=== PATIENT | female | born 1950 | race Caucasian/White ===

== ENCOUNTER → 2022-08-06 12:42 | Outpatient (CLI) | payer MEDICARE, SELFPAY ==
--- NOTE | 2022-08-06 | DI.RAD.S_ITS ---
PROCEDURE: FL JOINT INJECTION LARGE LT INDICATIONS: Bilateral primary osteoarthritis of hip.... COMPARISON: None. TECHNIQUE: The indications, alternatives, benefits, risks, and complications of the procedure were explained to the patient. Written informed consent was obtained and placed in the chart. The patient was placed in an appropriate position on the fluoroscopy table, and a site was chosen for percutaneous access under fluoroscopic guidance. The site was prepped and draped in a sterile fashion. Local anesthetic was administered using a 1% lidocaine solution. A hypodermic or spinal needle was then used to access the symptomatic joint. Intra-articular location of the needle tip was confirmed by injecting a small amount of contrast, followed by steroid administration. The needle was then withdrawn, and a bandage applied to the puncture site. FINDINGS: Joint injected: Left hip Medications injected: 4 mL of 40 mg/mL Kenalog and 0.5% Ropivacaine mixture. Patient's pain before injection: 5-6 out of 10. Patient's pain after injection: 1-2 out of 10. Complications: None. IMPRESSION: Successful fluoroscopically guided administration of steroid and anaesthetic solution into the left hip joint. Dictated by: Jay Harper M.D. on 08/06/2022 at 16:43 Approved by: Jay Harper M.D. on 08/06/2022 at 16:44
== END ==
PROVIDERS: PCP Physician Assistant Medical; Referring Provider Physician Assistant Surgical; Visit Provider Physician Assistant Surgical
DX: M16.0 Bilateral primary osteoarthritis of hip (principal)
CPT/HCPCS: 20610; 77002

== ENCOUNTER → 2023-05-09 13:09 | Outpatient (CLI) | payer MEDICARE, SELFPAY ==
[2023-05-09 14:04] LABS: Add Manual Diff / Slide Review NO; Basophils Absolute Auto 100 /uL (0-100); Basophils Percent Auto 1.2 % (0-2); Eosinophils Absolute Auto 200 /uL (0-450); Eosinophils Percent Auto 3.6 % (2-4); Hematocrit 39.5 % (36-46); Hemoglobin 13.4 g/dL (12.0-16.0); Lymphocytes Absolute Auto 1500 /uL (1100-4500); Lymphocytes Percent Auto 28.7 % (25-40); Mean Corpuscular HGB Conc 33.9 % (30-36); Mean Corpuscular Hemoglobin 32.2 PG (26-34); Mean Corpuscular Volume 94.9 fL (80-100); Monocytes Absolute Auto 600 /uL (0-900); Monocytes Percent Auto 10.9 % (3-14); Neutrophils Absolute Auto 2900 /uL (1500-7000); Neutrophils Percent Auto 55.6 % (50-75); Platelet Count 299 X10^3/uL (150-400); Red Blood Cell Count 4.16 X10^6/uL (4.0-5.2); Red Cell Distribution Width 13.5 % (11.6-14.8); White Blood Cell Count 5.3 X10^3/uL (4.5-11.0)
[2023-05-09 14:06] LABS: Appearance Urine UA CLEAR; Bilirubin Urine UA NEGATIVE (NEGATIVE); Color Urine UA YELLOW; Glucose Urine UA NEGATIVE (Negative); Ketones Urine UA NEGATIVE (NEGATIVE); Leukocyte Esterase Urine UA NEGATIVE (NEGATIVE); Nitrite Urine UA POSITIVE (Negative); Occult Blood Urine UA NEGATIVE (Negative); Protein Urine UA NEGATIVE (Negative); Specific Gravity Urine UA <=1.005 (1.000-1.035); Urobilinogen Urine UA 0.2 E.U./dL (0.2)
[2023-05-09 14:08] LABS: Urine Volume 10mL (spun)
[2023-05-09 14:10] LABS: Bacteria Urine Moderate (10-30); Culture Indicated Urine Specimen Cultured; RBC Urine None Seen (0-5/HPF); Squamous Epithelial Cell Urine None Seen (0-5/HPF); WBC Urine None Seen (0-5/HPF)
[2023-05-09 14:22] LABS: BUN Creatinine Ratio 27.7 (6-22); Blood Urea Nitrogen 18 mg/dL (7-17); Calcium 9.8 mg/dL (8.4-10.2); Carbon Dioxide 30 mmol/L (22-32); Chloride 100 mmol/L (98-107); Estimated Glomerular Filt Rate > 60 mL/min (>60); Glucose 109 mg/dL (80-110); HEMOLYSIS < 15 (0-50); Potassium 3.9 mmol/L (3.4-5.1); Sodium 138 mmol/L (137-145)
[2023-05-11 05:36] LABS: x Labcorp Estim. Avg Glu (eAG) 120 mg/dL (.); x Labcorp Hemoglobin A1c 5.8 % (4.8-5.6)
== END ==
PROVIDERS: PCP Physician Assistant Medical; Referring Provider Orthopaedic Surgery; Visit Provider Orthopaedic Surgery
DX: Z01.818 Encounter for other preprocedural examination (principal); R73.9 Hyperglycemia, unspecified; N39.0 Urinary tract infection, site not specified
CPT/HCPCS: 36415; 80048; 81001; 83036; 85025; 87077; 87086; 87186; 93005; 93010

== ENCOUNTER 2023-06-24 11:32 | Day surgery (SDC) | payer MEDICARE, SELFPAY ==
[2023-06-16 09:49] VITALS: BMI 38.2
[2023-06-24] VITALS (11 sets, daily range): BP systolic 124–157; BP diastolic 59–87; PULSE 61–86; RESP 10–18; TEMP 35.8–36.5; O2SAT 96–99; BMI 38.2
--- NOTE | 2023-06-24 06:00 | DI.RAD.S_ITS ---
PROCEDURE: XR PELVIS 1-2V INDICATIONS: INNER OP HIP TECHNIQUE: Intra-operative view of the pelvis and hip acquired. COMPARISON: [facility], CR, XR HIP W PEL IF DONE LT 2V, 06/24/2023, 17:46. [facility], CR, XR PELVIS WITH LATERAL HIP LEFT, 04/30/2023, 8:58. FINDINGS: Bones: Intraoperative devices prior to placement of arthroplasty prostheses are in expected positions. No fractures or suspicious bony lesions. Soft tissues: Overlying surgical retractors are present, along with other intraoperative changes. IMPRESSION: Intraoperative left hip arthroplasty. Dictated by: Chiara Norris M.D. on 06/25/2023 at 12:09 Approved by: Chiara Norris M.D. on 06/25/2023 at 12:09
[2023-06-24] MEDS: VANCOMYCIN 1,000 MG/200 ML PIGGYBACK 200 MG IV (14:02)
[2023-06-24] MEDS: MELOXICAM 7.5 MG TABLET 15 MG PO (14:03)
[2023-06-24] MEDS: ACETAMINOPHEN 325 MG TABLET 975 MG PO (14:03)
--- NOTE | 2023-06-24 14:59 | P.OP_ITS ---
Operative Date/Time/Diagnoses Date of procedure: 06/24/23 Time of procedure: 15:00 Pre-op diagnosis: Left hip OA Post-op diagnosis: same Procedure & Clinicians Procedure: Left total hip arthroplasty posterior approach Same procedure as scheduled: Yes Indications: The patient has had progressively worsening left hip pain with radiographic nilson nges consistent with arthritis. Non-operative management has failed and the patient has requested total hip replacement. The risks, benefits and alternatives to surgery were discussed with the patient prior to proceeding. Risks discussed included, but were not limited to, failure to relieve pain, leg length discrepancy, dislocation, stiffness, infection, nerve damage, deep venous thrombosis, pulmonary embolism, stroke, coma, heart attack, permanent paralysis and , as well as the potential need for eventual revision of the prosthetic. Surgeon: [employer] Librarian: Pawel Newton Anesthesia Type: General and Spinal Operative Notes Findings: Severe left hip OA, adequate stability, adequate bone Closure Type: primary Specimen(s): none sent Prosthetic devices, grafts, tissues, transplants, or devices: [employer] R3 50, neutral poly liner,one 6.5 mm screw, polar stem size 2 with collar, 32 +0 femoral head Estimated Blood Loss (mL): 250 Blood products transfused: none Procedure in detail: The patient was seen in the pre-operative area, where the patient identified the left hip as the operative site and this was marked with my initials. The patient received pre-operative antibiotics and was taken to the operating room and placed on the operative table in the right lateral decubitus position after satisfactory anesthesia. A bpm analyst out was performed. The left leg was prepared from the ankle to the iliac crest with ChloroPrep in the usual fashion and draped through sterile drapes. A PA was used during the procedure and was essential for intraoperative retraction and safe implantation of the components. The hip was approached through an approximately 20 cm incision centered over the greater trochanter and curving gently posteriorly as it went proximally. This was carried sharply to the fascia anderson, which was divided and retracted with a self retaining retractor. The trochanteric bursa was excised with care being taken to avoid the sciatic nerve, which was identified and protected throughout the case. The short external rotators were incised and the capsulomuscular flap was raised and tagged for later repair. The hip was dislocated, and a femoral neck osteotomy performed approximately 15 mm above the lesser trochanter. Retractors were placed around the femur. The canal was opened with a box cutting osteotome, followed by a T handled reamer and a lateralizing reamer. The chili pepper broach was then used, followed by sequential broaching until there was good stability of the broach in the femur. Retractors were placed to expose the acetabulum. The labrum and central soft tissues were removed. Reaming was performed initially going up in 2 mm increments, then 1 mm increments until good bite was obtained with an odd sized reamer. The cup 1 mm larger than the last reamer was then inserted using the a ppropriate anteversion guides. It was further stabilized with a single screw. A trial neutral liner was placed. The broach was placed in the canal. A trial head and neck were then placed and the hip relocated and checked for leg length and stability. An intraoperative film confirmed the component position and no evidence of fracture. The patient was stable in the position of sleep, of squatting, and could be put through a range of motion with 45 degrees internal rotation without dislocation. At 90 degrees flexion, internal rotation to 70? was possible before dislocation. This was felt to be satisfactory and the appropriate components were opened, and the trials were removed. The acetabular liner was impacted into position. The final stem was then impacted into the prepared femoral canal. A brief Betadine soak was performed while trialing with head options. The hip was meticulously irrigated with normal saline. Finally the femoral head was impacted onto the stem. The acetabulum was cleared of all material and the hip relocated one final time. The capsulomuscular flap was then repaired to the greater trochanter though an awl hole using the tag sutures. The short external rotators were repaired with a nonabsorbable suture. A deep drain was placed and brought out anteriorly. The fascia anderson was closed with Vicryl. The subcutaneous layer was closed with barbed sutures and skin brisa. A [place] Dressing was applied and the patient was taken to recovery having tolerated the procedure well. Complications: none Post-operative Condition: stable Disposition: Acute Care Plan for aftercare: The patient will be maintained on a standard total hip replacement protocol with weight bearing as tolerated and posterior hip precautions. The patient will receive Aspirin and sequential compression devices for DVT prophylaxis. The patient has a history of a single superficial phlebitis episode but has not had recurrent venous thrombus events. The patient will be discharged home when safe for the home environment.
--- NOTE | 2023-06-24 14:59 | PM.PREOP ---
Pre-operative Note Interval Note History & Physical reviewed/Exam performed by Physician: Yes Changes to H&P: No
[2023-06-24] MEDS: CEFAZOLIN 2 GM/100 ML PREMIX 100 ML IV ×2 (15:12→23:30)
[2023-06-24] MEDS: TRANEXAMIC ACID 1,000 MG VIAL 1000 MG INJ ×2 (15:39→17:03)
[2023-06-24] MEDS: LACTATED RINGERS 1,000 ML 42 ML IV ×2 (15:50→17:58)
--- NOTE | 2023-06-24 16:01 | SUR.OPER ---
Lateral on padded OR bed. Gel axillary roll. Arms secured on padded armboard with pillow supporting top arm. Padded hip positioner braces x4 - anterior and posterior chest and pelvis. Additional gel pad used anterior pelvis. Gel pad under bottom leg from knee to foot and secured with tape over sheet.
[2023-06-24] MEDS: BUPIVACAINE LIPOSOME 266 MG/20 ML VIAL INJ (16:11)
[2023-06-24] MEDS: BUPIVACAINE 0.5% (PF) 30 ML, EPINEPHrine 0.15 MG INJ (16:13)
--- NOTE | 2023-06-24 18:00 | DI.RAD.S_ITS ---
PROCEDURE: XR HIP W PEL IF DONE LT 2V INDICATIONS: POST OP LEFT HIP TECHNIQUE: AP pelvis and lateral view of the hip acquired. COMPARISON: None. FINDINGS: Bones: Patient is status post left hip arthroplasty, with hardware components in expected positions. The hip joint appears congruent. The visualized bony structures appear intact. Soft tissues: Overlying postoperative changes are noted. No suspicious soft tissue densities. IMPRESSION: Expected post-operative appearance of a hip arthroplasty. Approved by: Jocelin Smart M.D.,Ph.D. on 06/24/2023 at 19:05
[2023-06-24] MEDS: ACETAMINOPHEN 325 MG TABLET 650 MG PO (19:59)
[2023-06-24] MEDS: OXYCODONE IR 5 MG TABLET PO (20:01)
[2023-06-24] MEDS: METOPROLOL ER 25 MG TABLET PO (20:30)
[2023-06-24] MEDS: LACTATED RINGERS 1,000 ML 100 ML IV (20:36)
[2023-06-24] MEDS: ASPIRIN EC 81 MG TABLET PO (20:39)
[2023-06-24] MEDS: ATORVASTATIN 20 MG TABLET 40 MG PO (20:39)
[2023-06-24] MEDS: IBUPROFEN 600 MG TABLET PO (20:40)
[2023-06-24] MEDS: DOCUSATE 100 MG CAPSULE PO (20:40)
[2023-06-24] MEDS: HYDROMORPHONE 0.5 MG INJ IV (21:44)
[2023-06-25] VITALS (11 sets, daily range): BP systolic 68–139; BP diastolic 38–69; PULSE 53–87; RESP 16; TEMP 36.1–36.6; O2SAT 94–99
[2023-06-25] MEDS: ACETAMINOPHEN 325 MG TABLET 650 MG PO ×3 (01:16→13:35)
[2023-06-25] MEDS: IBUPROFEN 600 MG TABLET PO (01:17)
--- NOTE | 2023-06-25 01:27 | PC.NURSE ---
Addendum entered by Lias Weaver R.N. 06/25/23 02:46: Pt unable to void. Bladder scan performed with result of 500-600cc. Straight cath results 700cc. Original Note: Patient orthostatic when getting up to bedside commode. Patient reported dizziness and weakness while sitting. BP sitting was 70/38, HR 38. Lying BP 119/76, HR 73.
[2023-06-25] MEDS: LACTATED RINGERS 1,000 ML 100 ML IV (01:44)
[2023-06-25] MEDS: OXYCODONE IR 5 MG TABLET PO ×4 (02:22→13:35)
[2023-06-25] MEDS: CEFAZOLIN 2 GM/100 ML PREMIX 100 ML IV (06:07)
[2023-06-25 06:15] LABS: Hematocrit 35.7 % (36-46); Hemoglobin 11.9 g/dL (12.0-16.0)
[2023-06-25] MEDS: LEVOTHYROXINE 137 MCG TABLET PO (06:28)
--- NOTE | 2023-06-25 09:20 | PT.IIE ---
Current Diagnoses Unilateral primary osteoarthritis, left hip (06/24/23) Pain in left hip (06/24/23) Surgery Performed Operation Date: 06/24/23 13:45 Actual Procedures p Total Hip Arthroplasty(Left) - Heide Douglas MD Surgical History (Last Updated 06/16/23 @ 10:20 by Joanne Mina, RN) Hx of bilateral cataract extraction Hx of cholecystectomy (2011) Hx of heart artery stent (2017) Hx of hernia repair Hx of tubal ligation (~1972) Hx of vein stripping (~1983) Medical History (Last Updated 06/16/23 @ 10:20 by Joanne Mina RN) Anxiety Depression DVT (deep venous thrombosis) Easy bruisability Fibromyalgia HLD (hyperlipidemia) HTN (hypertension) Hypothyroidism NSTEMI (non-ST elevated myocardial infarction) (2017) DWIGHT on CPAP Osteoarthritis Physical Therapy Inpatient Evaluation/Re-Eval M1 PT/OT-IP Prior Functional Status Start: 06/25/23 12:50 Freq: NEEDED Status: Active Protocol: Document 06/25/23 09:20 AB (Rec: 06/25/23 13:15 AB [id number]) Medical Review Prior Functional Status Medical History Reviewed Yes Communication agreeable to do PT Mobility and Gait pt stated that she was modified independent with all mobilities and ambulation without AD indoors but uses a hurrycane for outdoor mobility Social History Household Members family,friend(s) Living Arrangements House Number of Floors (Floors) Two Floors Number of Stairs To Enter/Railing? pt stays on main level of the house has 2 steps without rails but has R sided post to enter the house Home Environment Standard Height Toilet,Walk in Shower,Built-In Shower Seat Home Equipment Front Wheel Walker,Raised Toilet Seat Without Armrests, Grab Bars Near Toilet Additional Social History Comment pt will have her son and girlfriend Barbara to assist her at home pt has a hurrycane M2 PT-IP Current Condition Start: 06/25/23 12:50 Freq: NEEDED Status: Active Protocol: Document 06/25/23 09:20 AB (Rec: 06/25/23 13:15 AB [id number]) Physical Therapy Current Condition Current Condition Evaluation Date 06/25/23 Treatment Diagnosis s/p L ESTEFANY posterior; difficulty in walking Onset Date 03/26/24 M3 PT-IP Subjective Start: 06/25/23 12:50 Freq: NEEDED Status: Active Protocol: Document 06/25/23 09:20 AB (Rec: 06/25/23 13:15 AB [id number]) Subjective Physical Therapy Visit Type Type Initial Evaluation Visit Start Time 09:20 Visit Stop Time 11:25 Notes pt seen for split visits: 920 am to 1005 and 1100 am to 1125 Number of DIRECTOR OF FINANCIAL REPORTING Visits 0 Physical Therapy Visit Comments Patient Comments pt is agreeable to do PT Therapy Pain Assessment Pain When Pain Assessed At Rest Pain Present Pain Present Pain Reported Location Left Hip Intensity 5 Scale Used Numeric (0 - 10) Pain Management Techniques Apply Cold,Distraction, Modification of Treatment,Re- positioning,Timing of Activity with Medications M4 PT-IP Mobility and Gait Start: 06/25/23 12:50 Freq: NEEDED Status: Active Protocol: Document 06/25/23 09:20 AB (Rec: 06/25/23 13:15 AB [id number]) PT-Bed Mobility Assessment Supine to Sit Supine to Sit Minimal Assistance PT-Transfer Assessment Sit to and From Stand Sit to and from Stand Minimal Assistance,Maximum Assistance,1 Person Assistance ,2 Person Assistance,Use of Upper Extremities Equipment Transfer Assistive Device Gait Belt,Front Wheeled Walker Orthotic/Prosthetic Devices or Brace: No Transfers Transfer Destination Bedside Commode Transfer Technique Stand Step Pivot Transfer Ability Level of Assist Minimal Assistance,Moderate Assistance,1 Person Assistance ,Use of Upper Extremities Comments Mobility Comments pt supine in bed and agreeable to do PT. obtained PLOF and home set up from pt. BP: 104/ 59. post-op folder provided and reviewed contents. educated pt regarding L hip posterior precautions. pt requiring cues to recall her precautions. pt completed supine to sit min A. able to sit on EOB CGA. pt with increase posterior trunk lean requiring cues to position. pt requested to use the toilet. completed sit to stand from EOB x 3 attempts requiring max A x 1-2 and max cues. presents with increase posterior trunk leaning during pushing and pt sliding forward on EOB instead of pushing down to stand. pt completed step transfer to bedside commode min to mod A and cues using FWW. call light placed next to pt and instructed to ask for assistance once ready. informed nurse. checked back on pt again and pt sitting on the chair. completed sit to stand min A and max cues. pt with heavy UE use to push up from chair. instructed pt to sit back down. educated pt on sit to stand techniques. pt completed sit<>stand x 4 reps min A and max cues. pt ambulated in room using FWW ~ 25 ft min A and cues. pt sat back on chair. completed sit to stand again x2 and continues to require min A and max cues. pt step transfer to EOB min A using FWW. completed sit to stand from EOB requiring max A and max cues. pt tends to push trunk backwards and pt stated that she is afraid to lean forward. educated pt regarding techniques for sit to stand again and leaning forward for sit to stand will be go against her hip precautions as long as LLE is in a straight forward position prior to getting up. pt transferred back to chair min A using FWW. positioned pt on the chair. call light and table placed within reach. caregiver training set up for 2pm this afternoon. Gait Assessment Gait Gait Assistance Required: Minimum Assistance,1 Person Assist Distance (Feet) 25 Able to Maintain Weight Bearing Status Yes During Gait Assistive Devices Assistive Device Gait Belt,Front Wheeled Walker Orthotic/Prosthetic Devices or Brace: No Gait Deviations General Gait Pattern Antalgic,Decreased Stride Length,Decreased Feet Clearance Factors Limiting Gait Function Factors Limiting Gait Function Decreased Activity Tolerance, Decreased Strength,Difficulty Following Directions,Limited Range of Motion,Pain,Poor Balance,Poor Safety Awareness PT-Balance Assessment Sitting Balance and Reactions Static Sitting Balance Ability Good Dynamic Sitting Balance Ability Fair Standing Balance and Reactions Static Standing Balance Ability Fair Dynamic Standing Balance Ability Poor Device Used FWW M5 PT-IP Objective Assessments Start: 06/25/23 12:50 Freq: NEEDED Status: Active Protocol: Document 06/25/23 09:20 AB (Rec: 06/25/23 13:15 [id number]) Orientation Orientation/Cognition Level of Alertness Alert Orientation Name,Place,Situation Language Function Ability No Deficits Noted Safety Awareness Decreased Safety Awareness Memory Description Short Term Impaired Gross Range of Motion Lower Extremity ROM Assessment Within Functional Limits Strength Lower Extremity Strength Assessment Left Impaired Hip 3+/5 Knee 3+/5 Muscle Tone Muscle Tone WNL Yes M6 PT-IP Treatment Start: 06/25/23 12:50 Freq: NEEDED Status: Active Protocol: Document 06/25/23 09:20 AB (Rec: 06/25/23 13:15 [id number]) Physical Therapy Treatment Education Education Provided Precautions,Weight Bearing Status,Post-Op Packet,Safety M7 PT-IP Assessment and Plan Start: 06/25/23 12:50 Freq: NEEDED Status: Active Protocol: Document 06/25/23 09:20 (Rec: 06/25/23 13:15 [id number]) PT Summary Assessment and Plan Potential Rehabilitation Potential Fair Status of Condition at Evaluation Evolving Summary Impairments Pain,ROM,Strength,Balance, Coordination,Sensation,Tone, Cognition,Bed Mobility, Transfers,Gait,Activity Tolerance Assessment Summary pt is a 72 y/o F s/p L ESTEFANY posterior approach POD 1. pt requiring max cue with all tasks for hip precautions and safety. pt with difficulty with sit to stand requiring max A x 1-2 for getting up from EOB and min A from chair. pt requiring min A for ambulation using fWW. caregiver training set up this afternoon at 2 pm. will continue to assess progress. pt also has to complete stair climbing training as pt has 2 steps without rails to enter the house. Goals Bed Mobility Goal Independent Transfer Goal Independent,Front Wheeled Walker Gait Goal Independent,Front Wheel Walker Gait Distance 150 Other Goals up/down 2 steps using hurrycane/SAFEMAKER min A Days to Meet Goals 5 Frequency of Treatment Frequency Of Treatment Twice a Day Treatment Plan Physical Therapy Treatment Plan Bed Mobility Training,Transfer Training,Gait Training, Therapeutic Exercise,Balance Retraining,Post Op Education, Discharge Planning,Hot or Cold Pack,Neuromuscular Re-ed, Coordination Retraining,Manual Therapy Precautions Posterior Hip Precautions No Hip Flexion > 90 degrees,No Hip Internal Rotation,No Hip Adduction Weight Bearing Status Weight Bearing Status Weight Bear as Tolerated Allowed Weight Bearing Amount (enter % LLE WBAT or #) (%) Recommendations To Nursing Amount of Assist Needed 2 Person Assist Discharge Recommendations PT Discharge Recommendations Home with 21/10 Assist Available,Outpatient PT Transportation Needs at Discharge Private Vehicle
[2023-06-25] MEDS: MELOXICAM 7.5 MG TABLET 15 MG PO (09:21)
[2023-06-25] MEDS: TRIAMTERENE/HCTZ 37.5/25 CAPSULE 1 CAP PO (09:21)
[2023-06-25] MEDS: DULOXETINE 30 MG CAPSULE 60 MG PO (09:22)
[2023-06-25] MEDS: DOCUSATE 100 MG CAPSULE PO (09:23)
[2023-06-25] MEDS: ASPIRIN EC 81 MG TABLET PO (09:23)
--- NOTE | 2023-06-25 11:35 | PM.PNPO.1 ---
Subjective Subjective Date Patient Seen: 06/25/23 Time Patient Seen: 07:00 Interval history: Patient is found in her bed. she says she was lightheaded last night and early this morning. She was unable to void on her own. Last attempt was at 5:00 a.m. Pain is controlled with oral medications. Denies any weakness, numbness or tingling down her legs. Exam Vital Signs (past 8 hours): - 06/25/23 05:30 06/25/23 05:35 06/25/23 05:47 Temperature 97.9 F Pulse Rate 70 77 87 Respiratory Rate 16 Blood Pressure 137/68 119/66 129/56 L Pulse Oximetry 99 95 95 Oxygen Flow Rate 0 0 0 Oxygen Delivery Method Room Air Oxygen Flow Rate 0 Narrative Exam Narrative: Dressing appears to be well-maintained no drainage noted. Sensation grossly intact to the lower extremities bilaterally. Able to flex and extend knee, dorsisflex and plantar flex against resistance bilaterally. Able to flex and extend EHL against resistance. Const General: cooperative and comfortable Resp Effort & Inspection: normal respiratory effort and able to speak in complete sentences Objective Labs 06/25/23 05:58 Labs: Laboratory Results - last 24 hr 06/25/23 05:58 Hgb 11.9 L Hct 35.7 L PFSH Medical History (Updated 06/16/23 @ 10:20 by Joanne Mina RN) Depression Easy bruisability Osteoarthritis Hypothyroidism Anxiety DVT (deep venous thrombosis) Fibromyalgia DWIGHT on CPAP HLD (hyperlipidemia) HTN (hypertension) NSTEMI (non-ST elevated myocardial infarction) (2017) Surgical History (Updated 06/16/23 @ 10:20 by Joanne Mina RN) Hx of vein stripping (~1983) Hx of tubal ligation (~1972) Hx of cholecystectomy (2011) Hx of hernia repair Hx of bilateral cataract extraction Hx of heart artery stent (2017) Social History household members: family and friend(s) Smoking Status: Never smoker alcohol intake: current Assessment & Plan Post-op Postoperative Procedures: Procedures Operation Date: 06/24/23 13:45 Actual Procedure Side Surgeon p Total Hip Arthroplasty Left Heide Douglas MD Postoperative day: 1 Postoperative plan: routine post-op care Postoperative plan narrative: Patient has complaints of light headedness and difficultly voiding. We will continue to monitor patient's blood pressure and bladder scan. Multi-modal pain control Work with PT. Juarezte tomorrow to be discharged home. Time Spent With Patient Time with patient: less than 15 minutes Quality VTE Deep Vein Thrombosis/Pulmonary Embolism Present on Admission: No
--- NOTE | 2023-06-25 12:27 | PM.DS.1 ---
History of Present Illness History of Present Illness Date Patient Seen: 06/25/23 Time Patient Seen: 12:00 Chief complaint: Left ESTEFANY *OPB* 06/23 Narrative: Left total hip arthroplasty posterior approach Same procedure as scheduled: Yes Indications: The patient has had progressively worsening left hip pain with radiographic changes consistent with arthritis. Non-operative management has failed and the patient has requested total hip replacement. The risks, benefits and alternatives to surgery were discussed with the patient prior to proceeding. Risks discussed included, but were not limited to, failure to relieve pain, leg length discrepancy, dislocation, stiffness, infection, nerve damage, deep venous thrombosis, pulmonary embolism, stroke, coma, heart attack, permanent paralysis and , as well as the potential need for eventual revision of the prosthetic. Surgeon: Heide Douglas [employer] Supervisor: Pawel Newton Anesthesia Type: General and Spinal Operative Notes Findings: Severe left hip OA, adequate stability, adequate bone Closure Type: primary Specimen(s): none sent Prosthetic devices, grafts, tissues, transplants, or devices: Douglas [employer] Nephew R3 50, neutral poly liner,one 6.5 mm screw, polar stem size 2 with collar, 32 +0 femoral head Estimated Blood Loss (mL): 250 Discharge Providers Provider Date of admission: 06/25/2023 Discharge Date: 06/25/23 Primary care physician: Yanni Simental PA-C Consults: 06/24/23 06:00 Consult to Anesthesiology Routine Comment: Consulting Provider: Anesthesiologist Reason for consultation: Regional block for post operative pain control 06/24/23 18:15 Consult to Discharge Planning Routine Comment: Consult to Occupational Therapy Evaluate & Treat Comment: Physician Instructions: Evaluate and treat Consult to Physical Therapy Evaluate & Treat Comment: Physician Instructions: post op ESTEFANY protocol Discharge provider: Uriel Farley PA-C Summary Hospital Course Discharge Diagnosis: Status post left hip arthroplasty Hospital Course: Multi modal pain control and PT. Status at Discharge Cognitive/behavioral status at discharge: oriented Functional status at discharge: uses cane/walker Overall status at discharge: patient is back to baseline Time Spent with Patient Time spent: Less than 30 minutes Exam Vital Signs (past 8 hours): - 06/25/23 05:30 06/25/23 05:35 06/25/23 05:47 Temperature 97.9 F Pulse Rate 70 77 87 Respiratory Rate 16 Blood Pressure 137/68 119/66 129/56 L Pulse Oximetry 99 95 95 Oxygen Flow Rate 0 0 0 06/25/23 10:06 Temperature 96.9 F L Pulse Rate 55 L Respiratory Rate 16 Blood Pressure 96/52 L Pulse Oximetry 94 Oxygen Flow Rate 0 Oxygen Delivery Method Room Air Oxygen Flow Rate 0 Narrative Exam Narrative: Dressing appears to be well-maintained no drainage noted.? Sensation grossly intact to the lower extremities bilaterally. Able to flex and extend knee, dorsisflex and plantar flex against resistance bilaterally. Able to flex and extend EHL against resistance. Patient had some complaints during her evening in the morning postoperatively. The lightheadedness dissipated as the morning and afternoon went on. She also had difficulty voiding and required a straight cath previous night.. But once she was started to ambulate she was able to void on her own. Objective Labs 06/25/23 05:58 Labs: Laboratory Results - last 24 hr 06/25/23 05:58 Hgb 11.9 L Hct 35.7 L PFSH Medical History (Updated 06/16/23 @ 10:20 by Joanne Mina RN) Depression Easy bruisability Osteoarthritis Hypothyroidism Anxiety DVT (deep venous thrombosis) Fibromyalgia DWIGHT on CPAP HLD (hyperlipidemia) HTN (hypertension) NSTEMI (non-ST elevated myocardial infarction) (2018) Surgical History (Updated 06/16/23 @ 10:20 by Joanne Mina RN) Hx of vein stripping (~1983) Hx of tubal ligation (~1972) Hx of cholecystectomy (2011) Hx of hernia repair Hx of bilateral cataract extraction Hx of heart artery stent (2017) Social History household members: family and friend(s) Smoking Status: Never smoker alcohol intake: current Discharge Assessment & Plan Assessment and Plan Assessment: Status post left hip arthroplasty Plan of Treatment: Posterior hip precautions. Discharge home with family to start outpatient physical therapy in 5-7 days. Patient will take aspirin 81 mg twice a day for DVT prophylaxis. Patient has been prescribed postoperative medications and received them and instructed in their use. Patient will follow up in clinic in 2 weeks for wound check. Discharge Plan Discharge Plan Patient Disposition: Home Provider Discharge Comment: Pending PT approval Discharge orders & Medications Discharge Orders: Discharge (Order); Ordered 06/25/23 Ordered By: Uriel Farley Prescriptions: Continued atorvastatin 40 mg Tablet 40 mg PO BEDTIME levothyroxine 137 mcg Tablet 137 mcg PO DAILY meloxicam 15 mg Tablet 7.5 - 15 mg PO DAILY acetaminophen 500 mg Tablet 1,500 mg PO DAILY PRN (Reason: Pain) triamterene-hydrochlorothiazid 37.5-25 mg Tablet 1 tab PO DAILY metoprolol succinate 25 mg Tablet Extended Release 24 Hr 25 mg PO BEDTIME duloxetine 60 mg Capsule,Delayed Release(Dr/Ec) 60 mg PO DAILY Changed aspirin 81 mg Capsule 81 mg PO BID Qty: 90 0RF Follow up/Referrals: Yanni Simental PA-C [Primary Care Provider] - Diet/Activity/Treatments Diet: Diet as Tolerated Activity: Weight bearing as tolerated Cold/Heat Therapy: Apply ice for pain relief Skin/Wound/Dressing Care Report to your healthcare provider any signs of infection, such as:: chills, fever, night sweats, unusual drainage and unusual redness Dressing: Keep dressing clean and dry. Change if it becomes dirty or disrupted. Visit Report/Discharge Packet Instructions: DI for Hip Replacement Stand Alone Forms: Patient Portal/API Discharge Data Primary Care Provider: Yanni Simental Attending Provider: Heide Douglas
--- NOTE | 2023-06-25 14:00 | PT.IPTN ---
Current Diagnoses Unilateral primary osteoarthritis, left hip (06/24/23) Pain in left hip (06/24/23) Surgery Performed Operation Date: 06/24/23 13:45 Actual Procedures p Total Hip Arthroplasty(Left) - Heide Douglas MD Physical Therapy Treatment Note M2 PT-IP Current Condition Start: 06/25/23 12:50 Freq: NEEDED Status: Active Protocol: Document 06/25/23 09:20 AB (Rec: 06/25/23 13:15 AB [id number]) Physical Therapy Current Condition Current Condition Evaluation Date 06/25/23 Treatment Diagnosis s/p L ESTEFANY posterior; difficulty in walking Onset Date 06/24/23 M3 PT-IP Subjective Start: 06/25/23 12:50 Freq: NEEDED Status: Active Protocol: Document 06/25/23 14:51 TS (Rec: 06/25/23 15:07 TS [id number]) Subjective Physical Therapy Visit Type Type Treatment Note Visit Start Time 14:00 Visit Stop Time 14:40 Notes Son and friend present for caregiver training. Number of DONATIONS ATTENDANT Visits 1 Physical Therapy Visit Comments Patient Comments pt is agreeable to do PT. Therapy Pain Assessment Pain When Pain Assessed At Rest Pain Present Pain Present Pain Reported M4 PT-IP Mobility and Gait Start: 06/25/23 12:50 Freq: NEEDED Status: Active Protocol: Document 06/25/23 14:51 TS (Rec: 06/25/23 15:07 TS [id number]) PT-Transfer Assessment Sit to and From Stand Sit to and from Stand Minimal Assistance,1 Person Assistance Equipment Transfer Assistive Device Gait Belt,Front Wheeled Walker Orthotic/Prosthetic Devices or Brace: No Comments Mobility Comments Sitting in chair, BP 123/74. Pt recalled 2/3 hip precautions( STS from chair with friend Malinda with FWW, pt required cues for pushing from arms chair and hip less than 90D. She ambulated ~100'CGA/ SBA with FWW and slow step to gait, she denied any dizziness . She performed steps x1 with friend and SPC ModA with difficulty wbering on L side. Steps x2 with CD REACTOR OPERATOR HEAD and ModA, pt continues to have difficulty wbering on L side. Pt ambulated back to chair. Pt was left in chair, all needs met. Gait Assessment Gait Gait Assistance Required: Standby Assistance,Contact Guard Assist Distance (Feet) 100 Able to Maintain Weight Bearing Status Yes During Gait Assistive Devices Assistive Device Gait Belt,Front Wheeled Walker Orthotic/Prosthetic Devices or Brace: No Gait Deviations General Gait Pattern Antalgic,Decreased Stride Length,Decreased Feet Clearance Factors Limiting Gait Function Factors Limiting Gait Function Decreased Activity Tolerance, Decreased Strength,Difficulty Following Directions,Limited Range of Motion,Pain,Poor Balance,Poor Safety Awareness Comments Gait Comments See mobility comments Stair Climbing Assessment Evaluation Level of Assist On Stairs Moderate Assistance,2 Person Assistance Devices Stair Climbing Assistive Devices Left Railing,Right Railing Technique/Endurance Stair Climbing Direction Ascend and Descend Stair Climbing Technique Step to Step Number of Steps Climbed 3 PT-Balance Assessment Sitting Balance and Reactions Static Sitting Balance Ability Good Dynamic Sitting Balance Ability Good Standing Balance and Reactions Static Standing Balance Ability Good Dynamic Standing Balance Ability Fair Device Used FWW M5 PT-IP Objective Assessments Start: 06/25/23 12:50 Freq: NEEDED Status: Active Protocol: Document 06/25/23 09:20 AB (Rec: 06/25/23 13:15 AB [id number]) Orientation Orientation/Cognition Level of Alertness Alert Orientation Name,Place,Situation Language Function Ability No Deficits Noted Safety Awareness Decreased Safety Awareness Memory Description Short Term Impaired Gross Range of Motion Lower Extremity ROM Assessment Within Functional Limits Strength Lower Extremity Strength Assessment Left Impaired Hip 3+/5 Knee 3+/5 Muscle Tone Muscle Tone WNL Yes M6 PT-IP Treatment Start: 06/25/23 12:50 Freq: NEEDED Status: Active Protocol: Document 06/25/23 14:51 TS (Rec: 06/25/23 15:07 TS [id number]) Physical Therapy Treatment Education Education Provided Precautions,Weight Bearing Status,Post-Op Packet,Safety M7 PT-IP Assessment and Plan Start: 06/25/23 12:50 Freq: NEEDED Status: Active Protocol: Document 06/25/23 14:51 TS (Rec: 06/25/23 15:07 TS [id number]) PT Summary Assessment and Plan Potential Rehabilitation Potential Fair Summary Impairments Pain,ROM,Strength,Balance, Coordination,Sensation,Tone, Cognition,Bed Mobility, Transfers,Gait,Activity Tolerance Progress Towards Goals Progressing Toward Goals Assessment Summary Tatum is making good progress with her mobility. She is Malinda for STS with use of FWW. She progressed her gait to ~100' SBA/CGA with FWW. She performed steps x3 with ModA x2. She had some difficulty with increased wbering on surgical LE when performing steps. PT is recommending pt return home with 24/7 assist at this time. Goals Bed Mobility Goal Independent Transfer Goal Independent,Front Wheeled Walker Gait Goal Independent,Front Wheel Walker Gait Distance 150 Other Goals up/down 2 steps using hurrycane/CD REACTOR OPERATOR HEAD min A Days to Meet Goals 5 Frequency of Treatment Frequency Of Treatment Twice a Day Treatment Plan Physical Therapy Treatment Plan Bed Mobility Training,Transfer Training,Gait Training, Therapeutic Exercise,Balance Retraining,Post Op Education, Discharge Planning,Hot or Cold Pack,Neuromuscular Re-ed, Coordination Retraining,Manual Therapy Precautions Posterior Hip Precautions No Hip Flexion > 90 degrees,No Hip Internal Rotation,No Hip Adduction Weight Bearing Status Weight Bearing Status Weight Bear as Tolerated Allowed Weight Bearing Amount (enter % LLE WBAT or #) (%) Recommendations To Nursing Amount of Assist Needed 1 Person Assist Discharge Recommendations PT Discharge Recommendations Home with 24/7 Assist Available,Outpatient PT Transportation Needs at Discharge Private Vehicle
--- NOTE | 2023-06-25 14:46 | OT.IP.EVAL ---
Current Diagnoses Unilateral primary osteoarthritis, left hip (06/24/23) Pain in left hip (06/24/23) Surgery Performed Operation Date: 06/24/23 13:45 Actual Procedures p Total Hip Arthroplasty(Left) - Heide Douglas MD Past Medical History (Last Updated 06/16/23 @ 10:20 by Joanne Mina, RN) Anxiety Depression DVT (deep venous thrombosis) Easy bruisability Fibromyalgia HLD (hyperlipidemia) HTN (hypertension) Hypothyroidism NSTEMI (non-ST elevated myocardial infarction) (2018) DWIGHT on CPAP Osteoarthritis Surgical History (Last Updated 06/16/23 @ 10:20 by Joanne Mina RN) Hx of bilateral cataract extraction Hx of cholecystectomy (2011) Hx of heart artery stent (2017) Hx of hernia repair Hx of tubal ligation (~1972) Hx of vein stripping (~1983) Occupational Therapy Inpatient Evaluation/Re-Eval M1 PT/OT-IP Prior Functional Status Start: 06/25/23 12:20 Freq: NEEDED Status: Active Protocol: Document 06/25/23 09:20 AB (Rec: 06/25/23 13:15 AB [id number]) Medical Review Prior Functional Status Medical History Reviewed Yes Communication agreeable to do PT Mobility and Gait pt stated that she was modified independent with all mobilities and ambulation without AD indoors but uses a hurrycane for outdoor mobility Social History Household Members family,friend(s) Living Arrangements House Number of Floors (Floors) Two Floors Number of Stairs To Enter/Railing? pt stays on main level of the house has 2 steps without rails but has R sided post to enter the house Home Environment Standard Height Toilet,Walk in Shower,Built-In Shower Seat Home Equipment Front Wheel Walker,Raised Toilet Seat Without Armrests, Grab Bars Near Toilet Additional Social History Comment pt will have her son and girlfriend Barbara to assist her at home pt has a hurrycane M1 PT/OT-IP Prior Functional Status Start: 06/25/23 14:29 Freq: NEEDED Status: Active Protocol: Document 06/25/23 14:29 PK (Rec: 06/25/23 14:45 PK [id number]) Medical Review Prior Functional Status Medical History Reviewed Yes Communication agreeable to do PT Mobility and Gait pt stated that she was modified independent with all mobilities and ambulation without AD indoors but uses a hurrycane for outdoor mobility Activities of Daily Living and IADL's pt reports being I with all tasks except donning shoes prior to sx Prior Functional Level (Other details) pt mows her grass, works in her green house, and drives Social History Household Members family,friend(s) Living Arrangements House Number of Floors (Floors) Two Floors Number of Stairs To Enter/Railing? pt stays on main level of the house has 2 steps without rails but has R sided post to enter the house Home Environment Standard Height Toilet,Walk in Shower Home Equipment Front Wheel Walker,Raised Toilet Seat Without Armrests, Hand Held Shower,Long Handled Sponge,Long Handled Shoe Horn, Thermodynamic Physicist,Sock Aid,Grab Bars Near Toilet Additional Social History Comment pt will have her son and girlfriend Barbara to assist her at home pt has a hurrycane M2 OT-IP Current Condition Start: 06/25/23 14:29 Freq: Status: Active Protocol: Document 06/25/23 14:29 PK (Rec: 06/25/23 14:45 VANNAALZENAIDA [id number]) Occupational Therapy Current Condition Current Condition Evaluation Date 06/25/23 Treatment Diagnosis s/p L ESTEFANY posterior approach Diagnosis Onset Date 06/24/23 Post Operative Precautions Posterior Hip Precautions No Hip Flexion > 90 degrees,No Hip Internal Rotation,No Hip Adduction M3 OT- IP Subjective and Pain Start: 06/25/23 14:29 Freq: Status: Active Protocol: Document 06/25/23 14:29 PK (Rec: 06/25/23 14:45 VANNAALZENAIDA [id number]) OT- Subjective Occupational Therapy Visit Type Type Initial Evaluation Visit Start Time 11:45 Visit Stop Time 12:20 Notes Pt sitting up in chair on entrance of OT. Pt agreeable to participating in OT eval. Occupational Therapy Visit Comments Patient Comments do go home OT Pain Assessment Pain When Pain Assessed At Rest Pain Present Pain Present Pain Reported Location Left Hip Intensity 3 Description Aching,Dull M4 OT- IP ADL's Start: 06/25/23 14:29 Freq: Status: Active Protocol: Document 06/25/23 14:29 PK (Rec: 06/25/23 14:45 [facility] [id number]) OT NPL-[id number]-Oqfswoy General Evaluation Self-Feeding Ability Independent OT ADL-Grooming Comments OT Grooming Comments pt declined during eval. OT discussed modifications and safety when performing sink side ADLs in order to maintain hip precautions. Pt reports she usually bends at the waist and leans on sink while performing. OT educated pt that this breaks 90 hip precautions and demonstrated possible modifications. OT ADL-Oral Care Comments Oral Care Comments pt declined during eval. OT discussed modifications and safety when performing sink side ADLs in order to maintain hip precautions. Pt reports she usually bends at the waist and leans on sink while performing. OT educated pt that this breaks 90 hip precautions and demonstrated possible modifications. OT ADL-Dressing General Eval Upper Body Dressing Ability Independent Lower Body Dressing Ability Standby Assistance Areas Needing Assistance Retrieving/Set-up of Clothing Assistive Devices Dressing Assistive Devices Long Handled Shoe Horn,Thermodynamic Physicist ,Sock Aid Comments OT Dressing Comments Pt demonstrated dressing while sitting up in chair, donning underpants and socks. Pt was familiar with AE, reporting that she has been using them for years. Pt attempted to use sock aid in upside down position. OT re-educated pt on proper use and safety. OT ADL-Toileting Comments OT Toileting Comments pt denied needing to at this time. OT ADL-Bathing Comments OT Bathing Comments Pt declined bathing. Pt asked questions about showering and her dressing. OT told pt to avoid holding HHS over dressing, but that water running her body was allowed. OT recommended wrapping area for increased protection and dryness. M5 OT- IP IADL's Start: 06/25/23 14:29 Freq: Status: Active Protocol: Document 06/25/23 14:29 [facility] (Rec: 06/25/23 14:45 [facility] [id number]) OT-Instrumental Activities of Daily Living Home Safety Awareness Awareness of Need for Assistance at Home Good Awareness Ability to Problem Solve Emergency Able to Problem Solve Situations Medication Management Medication Management No Deficits Identified Money Management Money Management No Deficits Identified Meal Preparation Meal Preparation Caregiver Provides Supervision Customer Service Advisor Customer Service Advisor Caregiver Provides Assist Driving Driving Caregiver Provides Assist M6 OT- IP Functional Cognition Start: 06/25/23 14:29 Freq: Status: Active Protocol: Document 06/25/23 14:29 VANNAALZENAIDA (Rec: 06/25/23 14:45 [facility] [id number]) Cognitive Factors Limiting Selfcare Function Cognitive Ability Level of Alertness Alert Patient Orientation Name,Age,Birthday,Month,Date, Year,Day of Week,Place, Situation Attention Span Ability Capable of Focused Attention, Capable of Sustained Attention Ability to Follow Commands Able to Follow One Step Commands,Able to Follow Multi- Step Commands Memory Description No Deficits Noted Safety Awareness No Deficits Noted Problem Solving Ability No deficits Noted Executive Function Ability No Deficits Noted Abstract Thinking Ability No Deficits Noted OT- Vision and Hearing OT- Hearing Assessment OT- Hearing Assessment WFL OT- Vision Assessment Visual Acuity WFL,Glasses All The Time M7 OT- IP Mobility and Balance Start: 06/25/23 14:29 Freq: Status: Active Protocol: Document 06/25/23 14:29 VANNAALMORGANAILEEN (Rec: 06/25/23 14:45 [facility] [id number]) OT-Transfer Assessment Sit to and From Stand Sit to and from Stand Minimal Assistance,1 Person Assistance Transfers Transfer Ability Minimal Assistance,1 Person Assistance Technique Transfer Destination Chair Transfer Technique Forward/Backward Scoot Devices Transfer Assistive Devices Gait Belt,Front Wheeled Walker OT- Gait Assessment Comments Gait Ability Comments pt declined as her lunch had arrived. OT- Balance Assessment Sitting Balance and Reactions Static Sitting Balance Ability Normal Dynamic Sitting Balance Ability Good Standing Balance and Reactions Static Standing Balance Ability Good Dynamic Standing Balance Ability Fair M8 OT- IP Objective Assessments Start: 06/25/23 14:29 Freq: Status: Active Protocol: Document 06/25/23 14:29 VANNAFATIMAHMORGANAILEEN (Rec: 06/25/23 14:45 [facility] [id number]) OT Gross Range of Motion Upper Extremity Range of Motion Assessment Within Functional Limits OT Strength Upper Extremity Strength Assessment Within Functional Limits Hand Truck Guard Strength Hand Dominance Right OT- Coordination Assessment Upper Extremity Finger to Nose Test Within Functional Limits Finger Tapping Test Within Functional Limits M9 OT- IP Assessment and Plan Start: 06/25/23 14:29 Freq: Status: Active Protocol: Document 06/25/23 14:29 VANNAALMORGANAILEEN (Rec: 06/25/23 14:45 [facility] [id number]) OT Summary Assessment and Plan Potential Rehabilitation Potential Excellent Analytic Complexity at Evaluation Low Summary OT Impairments Pain,Balance,Functional Mobility,Grooming,Dressing, Toileting,Bathing,Toilet Transfers,Shower Transfers, Activity Tolerance Progress Towards Goals Progressing Toward Goals Assessment Summary Pt is 72 yo F s/p L ESTEFANY posterior approach. Pt was unable to state her hip precautions. Pt was familiar with AE, but required minor corrections for correct use. Pt demonstrates decreased BADLs, functional t/fs, and activity tolerance. Pt is appropriate for skilled OT services to address these deficits for 1-2 visits until d/c. Pt was left up in chair with all needs met and in reach. Goals Grooming Goal Independent Dressing Goal Independent,Long Handled Shoe Horn,Thermodynamic Physicist,Sock Aid Toileting Goal Independent Bathing Goal Independent,Grab Bars,Hand Held Shower Sprayer,Long Handled Sponge or Thayer Toilet Transfer Goal Independent,Raised Toilet Seat ,Grab Bars Shower Transfer Goal Independent,Shower Chair,Grab Bars Days to Meet Goals 2 Frequency of Treatment Frequency Of Treatment Once a Day Treatment Plan OT Treatment Plan ADL Training,Functional Mobility,Therapeutic Exercises ,Patient/Family Education, Discharge Planning Discharge Recommendations OT Discharge Recommendations Home with Assistance, Outpatient PT Home Equipment Needs shower chair or bench Transportation Needs at Discharge Private Vehicle
--- NOTE | 2023-06-25 14:53 | CM.DANOTE ---
DCP Assessment Note Pt is a 72yo F here following left hip surg with Dr. Douglas on 06.24.23. PCP Yanni Simental Payer [facility] and self pay MANUFACTURING AREA MANAGER reviewed EMR. Per PT/OT, rec home with assistance. Per chart review, pt normally lives alone and DCP prior to surgery was home with son/friend. Pt lives in [place]. Son and friend to stay with her after dc from surg. OP PT/OT already arranged. Per ortho PA, dc order in. MANUFACTURING AREA MANAGER met with pt in room. Pt reports doing well with therapies and plan for CG training with son Meño/friend Barbara later in afternoon. Eager to dc home. Deny any CM needs at this time. Plan: anticipate dc home with friend/son. No identified CM needs nor barriers to safe dc home. CM team will continue to follow as needed. SKYLAR Tariq Discharge Planning/Care Management CM Discharge Assessment Start: 06/25/23 14:51 Freq: Status: Active Protocol: Document 06/25/23 14:51 SL (Rec: 06/25/23 14:53 [id number]) Discharge Planning Assessment Assigned Conduit Bender SKYLAR Macario DPOA/Assigned Designee Name vimal Wilder Contact Information [phone] Advance Directives? Yes Advance Directives on File No History Provided By Patient,Medical Record Prior Living Arrangements House Household Members family,friend(s) Type of transporation used prior to Drives own vehicle admit Independent with ADL's Yes Is patient alert and oriented? Yes DME Already Rented / Owned FWW / Walker,Cane Barriers to Discharge No Discharge Plan Home Transportation Arrangement friend Barbara in POV Referrals Initiated None needed Whiteboard Updated in Patient Room with Yes name and ext. # of Conduit Bender Review Status In Process Please Provide Date Initial DC 06/25/23 Assessment Was Performed Next Review Type Continued Stay Review Pre-Anesthesia Assessment Start: 06/16/23 09:49 Freq: Status: Active Protocol: Document 06/16/23 09:49 CAB (Rec: 06/16/23 10:55 CAB [id number]) Pre-Anesthesia Assessment Patient Information Reviewed Via Phone Assessment Assessment Completed With Patient Diagnostic Results BMP/CMP,CBC,EKG,Urinalysis Comment Labs/EKG @ 05/09/23 UA reflects E.Coli Primary Care Provider Yanni Simental Seen Specialist in Last 12 Months Yes Specialist Seen Inventory Clerk,Orthopedist, Urologist Primary Language Angolan Case Management Coordinator Required No Height 172.72 cm Weight 114.305 kg Body Mass Index (BMI) 38.2 Hearing Ability Hearing Impaired Visual Assist Glasses Dentition Type Teeth, Natural Present Barriers to Learning None Comment Pt denies any difficulities Hx Anesthesia Reactions No Hx Family Anesthesia Reaction No Hx Malignant Hyperthermia No Hx Blood Transfusions No Anesthesia Review Requested No Warp Preparer No alcohol intake current alcohol intake frequency holidays/special occasions only Smoking Status Never smoker Substance Use Type does not use Pain Present Pain Reported Musculoskeletal Symptoms Abnormal Gait,Difficulty Walking,Joint Pain History of Falling (Recent or History of Yes ) Patient is completely paralyzed or No completely immobile Prosthesis or Orthotic Device Cane Mental Status Oriented to own ability Is patient on oxygen? No Does patient have BURNETT/SOB No Hx Sleep Apnea Yes CPAP/BIPAP use prescribed and used routinely Will Bring CPAP/BIPAP DOS Yes Currently Taking a Beta Kehinde Yes: Metoprolol Can You Climb a Flight of Stairs Without No SOB Hx Chest Pain Yes Hx SOB Yes Hx Syncope or Dizziness No Anti-Coagulant Therapy Yes: ASA 81mg-pt will check w/ PCP if to hold or continue Has a Color Depositing Machine Tender No: Last visit 05/25/19, has not follow w/cardiology Cardiac Testing No Hx Pacemaker/ICD No Pacemaker Rep Required? No Cardiac Clearance Received Not Applicable Comment Cardiac records scanned and in surgery folder Diet Type At Home Regular Dysphagia No Gastrointestinal Symptoms Constipation Chronic UTI Yes Bladder Pattern Urgency Urinary Catheter Present No Hx Urinary Self Catheterization No Diabetes No HgbA1C 5.8 Date 05/09/23 Patient No Lactating No Hx Drug Resistant Organism No Presence of External or Internal Medical Yes: Cardiac stent, CPAP, Devices bilat eye IOLs Received a COVID vaccine? Yes Received all doses? Yes Marital Status Single Lives With family,friend(s) Current Living Arrangements House Number of Floors (Floors) Two Floors Support System Friend(s) Does the Patient Have Assistance After Yes: Friend will assist w/care Surgery at MD Patient Discharge Plan Description Return Home Comment Pt advised overnight length of stay per surgeon Feels Safe in Current Environment Yes Been Physically Hurt or Threatened By a No Person in Current Environment Do you have thoughts of harming yourself None or others? Are you currently considering suicide? No Do you have a plan to hurt yourself or No Plan others? Do You Have Any Spiritual Beliefs That No May Affect Your HC Choices? Do You Have Any Cultural Practices That No May Affect Your HC Choices? Comment Moravian Who Can We Speak to About Patient's Care Family, friends Identifying Code for Release of Patient Declines to issue Information Health Care Proxy/Next of Kin Meño (son) Adrián (son) Health Care Proxy Phone Number Meño: [phone] Adrián: Emergency Contact Name Barbara (friend) Emergency Contact Advance Directives? Yes Advance Directives on File No Requested Patient Bring Advanced Yes Directives DOS Power of Tax Intern Yes Power of Tax Intern Name Meño (son) Power of Tax Intern PAC Instructions Bring CPAP/BIPAP,Do not shave/ clip surgical site,Durable medical equipment,Medications to take/avoid,Nasal antibiotic ,No ETOH/petroleum product on skin DOS,NPO,Post-op transportation,Pre-surgical wash,Sensory aids,Sturdy shoes /comfortable clothes,Do not bring valuables and remove jewelry
--- NOTE | 2023-06-25 15:43 | PC.NURSE ---
Day shift: Discharge instructions gone over with patient and patient's friend. Patient stated understanding, all questions answered. Discharge teaching included XAVI drain dressing. PIV removed prior to discharge. All belongings with patient. This RN escorted patient via wheelchair to exit where her son and friend will take her home.
== END 2023-06-25 15:30 | disposition home or self-care (01) ==
LOC: OR 11:36 → AC 11:41
PROVIDERS: PCP Physician Assistant Medical; Referring Provider Orthopaedic Surgery; Visit Provider Orthopaedic Surgery
PROC: 0SRB0JZ Replacement of Left Hip Joint with Synthetic Substitute, Open Approach (ICD-10-PCS; CPT 27130; principal; 2023-06-24 13:45)
DX: M16.12 Unilateral primary osteoarthritis, left hip (principal)
CPT/HCPCS: 27130; 36415; 72170; 73502; 85014; 85018; 97116; 97162; 97165; 97530; 97535; C1776; C9290; J0171; J0330; J0690; J1100; J1170; J2405; J2704; J3010

== ENCOUNTER → 2024-04-14 13:59 | Outpatient (CLI) | payer MEDICARE, SELFPAY ==
[2023-06-24 11:53] VITALS: BMI 38.2
--- NOTE | 2024-04-14 14:27 | EKG_ITS ---
[address] [address] Test Date: 2024-04-14 Pat Name: Tatum Yao Department: Room: Gender: Female Senior Government Program Analyst: : 1950 Requested By: Order Number: [id number] Reading MD: Sherif Blackwell MD Measurements Intervals [place] Rate: 73 P: 15 OR: 182 QRS: -49 QRSD: 86 T: 62 QT: 400 QTc: 440 Interpretive Statements Normal sinus rhythm Left anterior fascicular block Electronically Signed On 04-15-2024 11:57:46 PST by Sherif Blackwell MD
[2024-04-14 14:31] LABS: Appearance Urine UA CLEAR; Bilirubin Urine UA NEGATIVE (NEGATIVE); Color Urine UA YELLOW; Glucose Urine UA NEGATIVE (Negative); Ketones Urine UA NEGATIVE (NEGATIVE); Leukocyte Esterase Urine UA TRACE (NEGATIVE); Nitrite Urine UA NEGATIVE (Negative); Occult Blood Urine UA NEGATIVE (Negative); Protein Urine UA NEGATIVE (Negative); Urobilinogen Urine UA 0.2 E.U./dL (0.2)
[2024-04-14 14:33] LABS: Add Manual Diff / Slide Review NO; Basophils Absolute Auto 100 /uL (0-100); Basophils Percent Auto 1.4 % (0-2); Eosinophils Absolute Auto 200 /uL (0-450); Eosinophils Percent Auto 3.3 % (2-4); Hematocrit 40.5 % (36-46); Hemoglobin 13.6 g/dL (12.0-16.0); Lymphocytes Absolute Auto 2100 /uL (1100-4500); Lymphocytes Percent Auto 30.3 % (25-40); Mean Corpuscular HGB Conc 33.7 % (30-36); Mean Corpuscular Hemoglobin 32.1 PG (26-34); Mean Corpuscular Volume 95.4 fL (80-100); Monocytes Absolute Auto 700 /uL (0-900); Monocytes Percent Auto 9.7 % (3-14); Neutrophils Absolute Auto 3800 /uL (1500-7000); Neutrophils Percent Auto 55.3 % (50-75); Platelet Count 295 X10^3/uL (150-400); Red Blood Cell Count 4.24 X10^6/uL (4.0-5.2); Red Cell Distribution Width 14.1 % (11.6-14.8); White Blood Cell Count 6.8 X10^3/uL (4.5-11.0)
[2024-04-14 14:42] LABS: Hemoglobin A1C% w Est Avg Glu 5.5 % (4.0-6.0)
[2024-04-14 14:49] LABS: pH Urine UA 7.5 (4.5-8.0)
[2024-04-14 14:50] LABS: Bacteria Urine Many (>30); Culture Indicated Urine Specimen Cultured; RBC Urine None Seen (0-5/HPF); Squamous Epithelial Cell Urine None Seen (0-5/HPF); Urine Volume 10mL (spun); WBC Urine 1-5/HPF (0-5/HPF)
[2024-04-14 14:53] LABS: Blood Urea Nitrogen 20 mg/dL (7-17); Calcium 9.9 mg/dL (8.4-10.2); Carbon Dioxide 30 mmol/L (22-32); Chloride 101 mmol/L (98-107); Estimated Glomerular Filt Rate > 60 mL/min (>60); Glucose 95 mg/dL (80-110); HEMOLYSIS < 15 (0-50); Potassium 3.8 mmol/L (3.4-5.1); Sodium 139 mmol/L (137-145)
== END ==
PROVIDERS: PCP Physician Assistant Medical; Referring Provider Orthopaedic Surgery; Visit Provider Orthopaedic Surgery
DX: Z01.818 Encounter for other preprocedural examination (principal); R73.9 Hyperglycemia, unspecified; Z01.812 Encounter for preprocedural laboratory examination; N39.0 Urinary tract infection, site not specified
CPT/HCPCS: 36415; 80048; 81001; 83036; 85025; 87077; 87086; 87186; 93005

== ENCOUNTER 2024-06-08 11:22 | Day surgery (SDC) | payer MEDICARE, SELFPAY ==
[2023-06-24 11:53] VITALS: BMI 38.2
[2024-06-01 12:22] VITALS: BMI 39.5
[2024-06-08] VITALS (11 sets, daily range): BP systolic 110–131; BP diastolic 60–83; PULSE 71–88; RESP 12–18; TEMP 36–37.1; O2SAT 94–97; BMI 38.7
--- NOTE | 2024-06-08 06:00 | DI.RAD.S_ITS ---
PROCEDURE: XR KNEE RT 1TO2V INDICATIONS: TKA TECHNIQUE: 2 view(s) of the knee acquired. COMPARISON: [facility] [place], [place], XR KNEE 4+ VIEWS RIGHT, 04/14/2024, 13:13. FINDINGS: Bones: Patient is status post knee joint arthroplasty. Hardware components are in expected positions. Visualized bony structures are intact. Soft tissues: Overlying postoperative changes are noted. IMPRESSION: Expected post-operative appearance of a knee arthroplasty. Dictated by: Andrew Hill M.D. on 06/08/2024 at 16:58 Approved by: Andrew Hill M.D. on 06/08/2024 at 16:58
[2024-06-08] MEDS: VANCOMYCIN 1,000 MG in SODIUM CHLORIDE 0.9% 250 ML 250 MG IV (12:42)
[2024-06-08] MEDS: CELECOXIB 200 MG CAPSULE 400 MG PO (12:45)
[2024-06-08] MEDS: ACETAMINOPHEN 325 MG TABLET 975 MG PO (12:45)
--- NOTE | 2024-06-08 13:39 | PM.PREOP ---
Pre-operative Note Interval Note History & Physical reviewed/Exam performed by Physician: Yes Changes to H&P: No
[2024-06-08] MEDS: CEFAZOLIN 2 GM/100 ML PREMIX 100 ML IV ×2 (14:00→21:06)
[2024-06-08] MEDS: BUPIVACAINE LIPOSOME 266 MG/20 ML VIAL INJ (14:43)
[2024-06-08] MEDS: TRANEXAMIC ACID 1,000 MG VIAL 1000 MG INJ (14:43)
[2024-06-08] MEDS: BUPIVACAINE 0.25% W/ EPI 30 ML VIAL 60 ML INJ (14:44)
[2024-06-08] MEDS: LACTATED RINGERS 1,000 ML 42 ML IV (15:29)
--- NOTE | 2024-06-08 20:41 | P.OP_ITS ---
Operative Date/Time/Diagnoses Date of procedure: 06/08/24 Time of procedure: 14:00 Pre-op diagnosis: Right knee OA Post-op diagnosis: same Procedure & Clinicians Procedure: Right total knee arthroplasty Same procedure as scheduled: Yes Indications: The patient has had progressively worsening right knee pain with radiographic changes consistent with arthritis. Non-operative management has failed and the patient has requested total knee replacement. The risks, benefits and alternatives to surgery were discussed with the patient prior to proceeding. Risks discussed included, but were not limited to, failure to relieve pain, stiffness, infection, nerve damage, deep venous thrombosis, pulmonary embolism, stroke, coma, heart attack, permanent paralysis and , as well as the potential need for eventual revision of the prosthetic. Surgeon: Heide Douglas Wrapper Stitcher: Vidhya Norris Anesthesia Type: General, Spinal and Peripheral nerve block Operative Notes Findings: Severe right knee OA Closure Type: primary Specimen(s): none sent Prosthetic devices, grafts, tissues, transplants, or devices: Douglas and nephbandar brumfield BCS2 size 6 femur, size 5 tibia, +9 poly, 32 x 7-1/2 mm patella Estimated Blood Loss (mL): 250 Blood products transfused: none Procedure in detail: The patient was seen in the pre-operative area, where the patient identified the right knee as the operative site and this was marked with my initials. The patient received pre-operative antibiotics, and was taken to the operating room and placed on the operative table in the supine position. After satisfactory anesthesia, a fiber optic central office installer out was performed. The right leg was encircled with a tourniquet about the proximal thigh, and the leg was prepared from the toes to the tourniquet with ChloroPrep in the usual fashion and draped through sterile drapes. The leg was elevated and exsanguinated with Eschmark bandage and the tourniquet inflated to [250] mmHg pressure. A PA was used during the procedure was essential for retraction and safe implantation of the components. The knee was approached through an approximately 18 cm incision centered over the patella and carried into the knee through a medial parapatellar arthrotomy. Portion of the medial and lateral meniscus was resected. Soft tissue was carefully mobilized around the patella the patella was measured with a caliper. Bone was resected from the patella and the patellar height was reconstituted with up an appropriate sized patellar component. A cover was then placed on the patella. A small amount of additional medial and lateral meniscus was resected. Pins were placed for Cori assisted navigation. A meticulous plan was taken and developed. The femur was carefully mapped. The Cori robotic bur was used for the distal femoral resection. It looked like an appropriate distal femoral cut and the cut was made without difficulty. The rotation was assessed and the appropriate size femoral guide was placed on the distal femur and finishing cuts were made. There was no evidence of notching. The anterior, posterior and chamfer cuts were then made. The posterior osteophytes and soft tissues were then removed. The posterior capsule was injected with part of a mixture of 60 ml 0.25% Marcaine mixed with 20 ml Exparel for post operative pain control. The remainder of this mixture was injected into the capsule and subcutaneous tissues during cement curing. The tibial guide was meticulously navigated. The cut appeared to be adequate but it was about 1 mm high. The rotation was assessed. The patient was placed in extension residual medial and lateral meniscus as well as any residual bone was carefully resected. 1 mm additional tibia was resected. Hemostasis was achieved especially posteriorly. Additional local was injected into the posterior capsule. The extension gap was assessed. The femoral component was trial was placed and the notch was finished. Trial tibial and femoral components were then placed and the knee placed through a range of motion. Range of motion was [0-130], with good stability throughout the range. The trials were then removed, and the tibia was finished. The bone was prepared with pulsatile lavage, and dried with a sponge. Cement was applied and the final prosthetics placed. Excess cement was removed during and after cement curing. A brief Betadine soak was performed. After confirming there was no extruded cement posteriorly, the final tibial insert was placed. The knee was copiously irrigated and the tourniquet deflated. Hemostasis was obtained with the Bovie cautery. The capsule was closed with interrupted # 1 Vicryl suture. The subcutaneous layer was closed with barbed sutures, and the skin with a running 3-0 V-Lock suture and Surgical glue. An Aquacel Ag dressing was applied and the patient was taken to recovery having tolerated the procedure well. Complications: none Post-operative Condition: stable Disposition: Acute Care Plan for aftercare: The patient will be maintained on a standard total knee replacement protocol with weight bearing as tolerated. The patient will receive aspirin and sequential compression devices for DVT prophylaxis. The patient will be discharged home when safe for the home environment.
[2024-06-08] MEDS: LACTATED RINGERS 1,000 ML 100 ML IV (20:58)
[2024-06-08] MEDS: ASPIRIN EC 81 MG TABLET PO (21:05)
[2024-06-08] MEDS: METOPROLOL ER 25 MG TABLET PO (21:05)
[2024-06-08] MEDS: DOCUSATE 100 MG CAPSULE PO (21:06)
[2024-06-08] MEDS: ACETAMINOPHEN 325 MG TABLET 650 MG PO (21:06)
[2024-06-08] MEDS: ATORVASTATIN 20 MG TABLET 40 MG PO (21:06)
[2024-06-08] MEDS: OXYCODONE IR 5 MG TABLET PO (22:32)
[2024-06-09] MEDS: OXYCODONE IR 5 MG TABLET PO (03:15)
[2024-06-09 05:06] LABS: Hematocrit 31.2 % (36-46); Hemoglobin 10.7 g/dL (12.0-16.0)
[2024-06-09] MEDS: CEFAZOLIN 2 GM/100 ML PREMIX 100 ML IV (06:47)
[2024-06-09] MEDS: HYDROMORPHONE 2 MG TABLET 4 MG PO ×2 (06:49→11:53)
--- NOTE | 2024-06-09 07:40 | P.DS_ITS ---
History of Present Illness History of Present Illness Date Patient Seen: 06/09/24 Time Patient Seen: 07:00 Chief complaint: Right TKA robot *OPB* Narrative: The patient has had progressively worsening right knee pain with radiographic changes consistent with arthritis. Non-operative management has failed and the patient has requested total knee replacement. The risks, benefits and alternatives to surgery were discussed with the patient prior to proceeding. Risks discussed included, but were not limited to, failure to relieve pain, stiffness, infection, nerve damage, deep venous thrombosis, pulmonary embolism, stroke, coma, heart attack, permanent paralysis and , as well as the potential need for eventual revision of the prosthetic. Discharge Providers Provider Discharge Date: 06/09/24 Primary care physician: Yanni Simental PA-C Consults: 06/08/24 06:00 Consult to Anesthesiology Routine Comment: Consulting Provider: Anesthesiologist Reason for consultation: Regional block for post operative pain control Has provider been notified: No 06/08/24 17:18 Consult to Discharge Planning Routine Comment: Consult to Occupational Therapy Evaluate & Treat Comment: Physician Instructions: Evaluate and treat Consult to Physical Therapy Evaluate & Treat Comment: Physician Instructions: postop TKA protocol Discharge provider: Uriel Farley PA-C Summary Hospital Course Discharge Diagnosis: Right knee OA Hospital Course: Procedure: Right total knee arthroplasty Same procedure as scheduled: Yes Surgeon: Heide Douglas Periodicals Library Assistant: Vidhya Norris Anesthesia Type: General, Spinal and Peripheral nerve block Operative Notes Findings: Severe right knee OA Closure Type: primary Specimen(s): none sent Prosthetic devices, grafts, tissues, transplants, or devices: Douglas and nephew journey BCS2 size 6 femur, size 5 tibia, +9 poly, 32 x 7-1/2 mm patella Estimated Blood Loss (mL): 250 Blood products transfused: none Status at Discharge Cognitive/behavioral status at discharge: oriented Functional status at discharge: uses cane/walker Overall status at discharge: patient is back to baseline Time Spent with Patient Time spent: Less than 30 minutes Exam Vital Signs (past 8 hours): Oxygen Delivery Method Room Air Oxygen Flow Rate 0 Narrative Exam Narrative: Patient's pain is controlled with oral medication. ?Pain is localized to surgical site. ?Patient declines any new numbness or tingling at the surgical extremity. ?Patient denies any shortness of breath, dizziness, light-headedness, nausea, vomiting, fever or chills. 5/5 strength in hip flexors, quadriceps, hamstrings, DF, PF, EHL bilaterally. Sensation to light touch intact throughout BLE. Calves soft, compressible, nontender. Dressing placed intraoperatively CDI. Resp Effort & Inspection: normal respiratory effort and able to speak in complete sentences Objective Labs 06/09/24 04:45 Labs: Laboratory Results - last 24 hr 06/09/24 04:45 Hgb 10.7 L Hct 31.2 L PFSH Medical History (Updated 06/01/24 @ 13:12 by Joanne Mina RN) Anesthesia complication Depression Easy bruisability Osteoarthritis Hypothyroidism Anxiety DVT (deep venous thrombosis) Fibromyalgia DWIGHT on CPAP HLD (hyperlipidemia) HTN (hypertension) NSTEMI (non-ST elevated myocardial infarction) (2018) Surgical History (Updated 06/01/24 @ 12:18 by Joanne Mina RN) History of total left hip replacement (06/24/23) Hx of vein stripping (~1983) Hx of tubal ligation (~1972) Hx of cholecystectomy (2011) Hx of hernia repair Hx of bilateral cataract extraction Hx of heart artery stent (2017) Social History household members: family and friend(s) Smoking Status: Never smoker alcohol intake: current Discharge Assessment & Plan Assessment and Plan Assessment: Status post Right total knee arthroplasty Plan of Treatment: Discharge to home. ? Ambulate and weight bear as tolerated with assistive devices. ? Aspirin 81 mg twice a day for 6 weeks for DVT prevention. ? Baseline pain relief with acetaminophen 500mg every 4 hours as needed and ibuprofen 400 mg every 4 hours as needed. ?Patient has been prescribed oxycodone 5 mg every 4 ?hours as needed for breakthrough pain. ? Initiate physical therapy in the next 5-10 days. ? Keep dressing clean and dry. Keep dressing on until first office visit. If dressing becomes dirty or disrupted, replace with appropriate sized dressing. Follow up in clinic in 2 weeks for wound check. Contact clinic if there are any questions or concerns. Discharge Plan Discharge Plan Patient Disposition: Home Discharge orders & Medications Discharge Orders: Discharge (Order); Ordered 06/09/24 Ordered By: Uriel Farley Prescriptions: Continued atorvastatin 40 mg Tablet 40 mg PO BEDTIME levothyroxine 137 mcg Tablet 137 mcg PO DAILY meloxicam 15 mg Tablet 7.5 - 15 mg PO DAILY triamterene-hydrochlorothiazid 37.5-25 mg Tablet 1 tab PO DAILY metoprolol succinate 25 mg Tablet Extended Release 24 Hr 25 mg PO BEDTIME duloxetine 60 mg Capsule,Delayed Release(Dr/Ec) 60 mg PO DAILY aspirin 81 mg capsule 81 mg PO BID Qty: 90 0RF Changed acetaminophen 500 mg Tablet 500 mg PO Q4H PRN (Reason: Pain) Qty: 120 0RF Follow up/Referrals: Yanni Simental PA-C [Primary Care Provider] - Diet/Activity/Treatments Diet: Diet as Tolerated Activity: Ambulate multiple times a day. Use a cane or walker as needed. Full weight on leg. Cold/Heat Therapy: Use ice multiple times a day. Skin/Wound/Dressing Care Report to your healthcare provider any signs of infection, such as:: chills, fever, night sweats, unusual drainage and unusual redness Dressing: May shower. Leave dressing in place until follow up in office. No bathing or otherwise soaking incision. Call the office if the dressing becomes saturated inside. Visit Report/Discharge Packet Instructions: DI for Knee Replacement Stand Alone Forms: Patient Portal/API, Surgery Discharge Discharge Data Primary Care Provider: Yanni Simental Attending Provider: Heide Douglas VTE Deep Vein Thrombosis/Pulmonary Embolism Present on Admission: No
[2024-06-09 08:00] VITALS: BP 118/69; PULSE 61; RESP 14; TEMP 36.8; O2SAT 100
--- NOTE | 2024-06-09 09:05 | PT.IIE ---
Current Diagnoses Unilateral primary osteoarthritis, right knee (06/08/24) Surgery Performed Operation Date: 06/08/24 13:45 Actual Procedures p Total Knee Arthroplasty - Robot(Right) - Heide Douglas MD Surgical History (Last Updated 06/01/24 @ 12:18 by Joanne Mina, RN) History of total left hip replacement (06/24/23) Hx of bilateral cataract extraction Hx of cholecystectomy (2011) Hx of heart artery stent (2017) Hx of hernia repair Hx of tubal ligation (~1972) Hx of vein stripping (~1983) Medical History (Last Updated 06/01/24 @ 13:12 by Joanne Mina, RN) Anesthesia complication Anxiety Depression DVT (deep venous thrombosis) Easy bruisability Fibromyalgia HLD (hyperlipidemia) HTN (hypertension) Hypothyroidism NSTEMI (non-ST elevated myocardial infarction) (2017) DWIGHT on CPAP Osteoarthritis Physical Therapy Inpatient Evaluation/Re-Eval M1 PT/OT-IP Prior Functional Status Start: 06/09/24 10:09 Freq: NEEDED Status: Discharge Protocol: Document 06/09/24 10:10 [facility] (Rec: 06/09/24 10:21 [facility] [id number]) Medical Review Prior Functional Status Communication I Mobility and Gait Use of hurry cane outside. Activities of Daily Living and IADL's Still using LB dressing equipment for needs. Prior Functional Level (Other details) Pt's son, DIL and friend to assist her at home. Social History Household Members family,friend(s) Living Arrangements House Number of Floors (Floors) Two Floors Number of Stairs To Enter/Railing? 2 steps with right post and to stay on the main level. Home Environment Standard Height Toilet,Walk in Shower,Built-In Shower Seat Home Equipment Front Wheel Walker,Straight Cane,Raised Toilet Seat Without Armrests,Long Handled Sponge,Long Handled Shoe Horn, Director Of Loss Prevention,Sock Aid,Lift Recliner ,Grab Bars Near Toilet Additional Social History Comment Pt has an adjustable bed and toilet safety frame. M1 PT/OT-IP Prior Functional Status Start: 06/09/24 13:23 Freq: NEEDED Status: Active Protocol: Document 06/09/24 09:05 AB (Rec: 06/09/24 13:36 AB [id number]) Medical Review Prior Functional Status Medical History Reviewed Yes Communication able to make needs known Mobility and Gait pt stated that she was modified independent with all mobilities and ambulation without AD indoors and uses a hurrycane outdoors Activities of Daily Living and IADL's Still using LB dressing equipment for needs. Prior Functional Level (Other details) Pt's son, DIL and friend to assist her at home. Social History Household Members family,friend(s) Living Arrangements House Number of Floors (Floors) Two Floors Number of Stairs To Enter/Railing? pt stays on main level of the house 2 steps with right post to enter the house Home Environment Standard Height Toilet,Walk in Shower,Built-In Shower Seat Home Equipment Front Wheel Walker,Raised Toilet Seat Without Armrests, Long Handled Sponge,Long Handled Shoe Horn,Director Of Loss Prevention,Sock Aid,Lift Recliner,Grab Bars Near Toilet Additional Social History Comment Pt has an adjustable bed and toilet safety frame. pt has a hurrycane M2 PT-IP Current Condition Start: 06/09/24 13:23 Freq: NEEDED Status: Active Protocol: Document 06/09/24 09:05 AB (Rec: 06/09/24 13:36 AB [id number]) Physical Therapy Current Condition Current Condition Evaluation Date 06/09/24 Treatment Diagnosis s/p R TKA; difficulty in walking Onset Date 06/08/24 M3 PT-IP Subjective Start: 06/09/24 13:23 Freq: NEEDED Status: Active Protocol: Document 06/09/24 09:05 AB (Rec: 06/09/24 13:36 AB [id number]) Subjective Physical Therapy Visit Type Type Initial Evaluation Visit Start Time 09:05 Visit Stop Time 09:30 Number of INGOT CAR OPERATOR Visits 0 Physical Therapy Visit Comments Patient Comments agreeable to do PT Therapy Pain Assessment Pain Present Pain Present Pain Reported Location Right Knee Intensity 4 Scale Used Numeric (0 - 10) Pain Management Techniques Apply Cold,Distraction, Modification of Treatment,Re- positioning,Timing of Activity with Medications M4 PT-IP Mobility and Gait Start: 06/09/24 13:23 Freq: NEEDED Status: Active Protocol: Document 06/09/24 09:05 AB (Rec: 06/09/24 13:36 AB [id number]) PT-Bed Mobility Assessment Supine to Sit Supine to Sit Standby Assistance PT-Transfer Assessment Sit to and From Stand Sit to and from Stand Standby Assistance,Contact Guard Assistance,1 Person Assistance,Use of Upper Extremities Equipment Transfer Assistive Device Gait Belt,Front Wheeled Walker Orthotic/Prosthetic Devices or Brace: No Transfers Transfer Destination Chair Transfer Technique ambulated Transfer Ability Level of Assist Standby Assistance,Contact Guard Assistance,1 Person Assistance,Use of Upper Extremities Comments Mobility Comments pt supine in bed and agreeable to do PT. obtained PLOF and home setup. post-op folder provided and reviewed contents . educated on HEP. completed supine to sit SBA. able to sit on EOB SBA. sit to stand from EOB CGA and ambulated in room ~ 40 ft using FWW initial CGA but able to complete with SBA . educated pt on stair climbing using R post and hurrycane. sit to stand from chair SBA and completed up/down step using R post and hurrycane CGA to min A. pt walked back to the chair SBA using FWW. pt stated that she can let son know how to assist her and declined caregiver training. Left pt on the chair with OT. Gait Assessment Gait Gait Assistance Required: Standby Assistance,Contact Guard Assist Distance (Feet) 40 Able to Maintain Weight Bearing Status Yes During Gait Assistive Devices Assistive Device Gait Belt,Front Wheeled Walker Orthotic/Prosthetic Devices or Brace: No Gait Deviations General Gait Pattern Decreased Stride Length, Decreased Feet Clearance Factors Limiting Gait Function Factors Limiting Gait Function Decreased Activity Tolerance, Decreased Strength,Limited Range of Motion,Pain,Poor Balance,Poor Safety Awareness Stair Climbing Assessment Evaluation Level of Assist On Stairs Contact Guard Assistance, Minimal Assistance,1 Person Assistance Devices Stair Climbing Assistive Devices Tripod Cane/Hurry Cane,Right Railing Technique/Endurance Stair Climbing Direction Ascend and Descend Stair Climbing Technique Step to Step Number of Steps Climbed 1 Query Text: Stair Climbing Set # Repetitions (reps) 2 PT-Balance Assessment Sitting Balance and Reactions Static Sitting Balance Ability Normal Dynamic Sitting Balance Ability Good Standing Balance and Reactions Static Standing Balance Ability Fair Dynamic Standing Balance Ability Fair Device Used FWW M5 PT-IP Objective Assessments Start: 06/09/24 13:23 Freq: NEEDED Status: Active Protocol: Document 06/09/24 09:05 AB (Rec: 06/09/24 13:36 AB [id number]) Orientation Orientation/Cognition Level of Alertness Alert Orientation Name,Place,Situation Language Function Ability Hard of Hearing Safety Awareness Decreased Safety Awareness Memory Description Short Term Impaired Gross Range of Motion Lower Extremity ROM Assessment Right Impaired Impairments R knee flexion: ~ 70 deg R kne extension: ~ 15 deg off 0 Strength Lower Extremity Strength Assessment Right Impaired Knee 4-/5 Coordination Assessment Gross Coordination Gross Coordination WNL Sensation Assessment Sensation Gross Sensation WNL Muscle Tone Muscle Tone WNL Yes M6 PT-IP Treatment Start: 06/09/24 13:23 Freq: NEEDED Status: Active Protocol: Document 06/09/24 09:05 AB (Rec: 06/09/24 13:36 [id number]) Physical Therapy Treatment Exercises Exercises Heel Slides Education Education Provided Precautions,Weight Bearing Status,Post-Op Packet,Safety M7 PT-IP Assessment and Plan Start: 06/09/24 13:23 Freq: NEEDED Status: Active Protocol: Document 06/09/24 09:05 AB (Rec: 06/09/24 13:36 [id number]) PT Summary Assessment and Plan Potential Rehabilitation Potential Good Status of Condition at Evaluation Stable Summary Impairments Pain,ROM,Strength,Balance, Coordination,Sensation,Tone, Cognition,Bed Mobility, Transfers,Gait,Activity Tolerance Assessment Summary pt is a 73 y/o F s/p R TKA POD 1. pt is WBAT on RLE. pt requiring SBA to CGA with transfers and ambulation using FWW, min A for stair climbing . pt stated that son will be able to assist her and can let him know how to assist her and declined caregiver training. pt will have her family to assist her at home. Goals Bed Mobility Goal Independent Transfer Goal Independent,Front Wheeled Walker Gait Goal Independent,Front Wheel Walker Gait Distance 200 Other Goals up/down 2 steps using R poste + hurrycane SBA Days to Meet Goals 5 Frequency of Treatment Frequency Of Treatment Twice a Day Treatment Plan Physical Therapy Treatment Plan Bed Mobility Training,Transfer Training,Gait Training, Therapeutic Exercise,Balance Retraining,Post Op Education, Discharge Planning,Hot or Cold Pack,Neuromuscular Re-ed, Coordination Retraining,Manual Therapy Weight Bearing Status Weight Bearing Status Weight Bear as Tolerated Allowed Weight Bearing Amount (enter % RLE WBAT or #) (%) Recommendations To Nursing Amount of Assist Needed 1 Person Assist Discharge Recommendations PT Discharge Recommendations Home with Assistance, Outpatient PT Transportation Needs at Discharge Private Vehicle - PT assist SBA/CGA
[2024-06-09] MEDS: DOCUSATE 100 MG CAPSULE PO (09:38)
--- NOTE | 2024-06-09 09:38 | OT.IP.EVAL ---
Current Diagnoses Unilateral primary osteoarthritis, right knee (06/08/24) Surgery Performed Operation Date: 06/08/24 13:45 Actual Procedures p Total Knee Arthroplasty - Robot(Right) - Heide Douglas MD Past Medical History (Last Updated 06/01/24 @ 13:12 by Joanne Mina, RN) Anesthesia complication Anxiety Depression DVT (deep venous thrombosis) Easy bruisability Fibromyalgia HLD (hyperlipidemia) HTN (hypertension) Hypothyroidism NSTEMI (non-ST elevated myocardial infarction) (2018) DWIGHT on CPAP Osteoarthritis Surgical History (Last Updated 06/01/24 @ 12:18 by Joanne Mina, RN) History of total left hip replacement (06/24/23) Hx of bilateral cataract extraction Hx of cholecystectomy (2011) Hx of heart artery stent (2017) Hx of hernia repair Hx of tubal ligation (~1972) Hx of vein stripping (~1983) Occupational Therapy Inpatient Evaluation/Re-Eval M1 PT/OT-IP Prior Functional Status Start: 06/09/24 10:09 Freq: NEEDED Status: Active Protocol: Document 06/09/24 10:10 [facility] (Rec: 06/09/24 10:21 [facility] [id number]) Medical Review Prior Functional Status Communication I Mobility and Gait Use of hurry cane outside. Activities of Daily Living and IADL's Still using LB dressing equipment for needs. Prior Functional Level (Other details) Pt's son, DIL and friend to assist her at home. Social History Household Members family,friend(s) Living Arrangements House Number of Floors (Floors) Two Floors Number of Stairs To Enter/Railing? 2 steps with right post and to stay on the main level. Home Environment Standard Height Toilet,Walk in Shower,Built-In Shower Seat Home Equipment Front Wheel Walker,Straight Cane,Raised Toilet Seat Without Armrests,Long Handled Sponge,Long Handled Shoe Horn, Framing Specialist,Sock Aid,Lift Recliner ,Grab Bars Near Toilet Additional Social History Comment Pt has an adjustable bed and toilet safety frame. M2 OT-IP Current Condition Start: 06/09/24 10:09 Freq: Status: Active Protocol: Document 06/09/24 10:10 [facility] (Rec: 06/09/24 10:21 [facility] [id number]) Occupational Therapy Current Condition Current Condition Evaluation Date 06/09/24 Treatment Diagnosis S/P R TKA Diagnosis Onset Date 06/08/24 M3 OT- IP Subjective and Pain Start: 06/09/24 10:09 Freq: Status: Active Protocol: Document 06/09/24 10:10 [facility] (Rec: 06/09/24 10:21 [facility] [id number]) OT- Subjective Occupational Therapy Visit Type Type Initial Evaluation Visit Start Time 08:35 Visit Stop Time 09:38 Occupational Therapy Visit Comments Patient Comments Pt agreed to get up and get dressed. Patient/Caregiver Goals TO go home. OT Pain Assessment Pain When Pain Assessed At Rest Pain Present Pain Present Pain Reported Location Right Knee Intensity 4 Scale Used Numeric (0 - 10) M4 OT- IP ADL's Start: 06/09/24 10:09 Freq: Status: Active Protocol: Document 06/09/24 10:10 [facility] (Rec: 06/09/24 10:21 [facility] [id number]) OT SDA-Nanz-Lwtydtw General Evaluation Self-Feeding Ability Independent OT ADL-Grooming Comments OT Grooming Comments Not performed. OT ADL-Oral Care Comments Oral Care Comments Not performed. OT ADL-Dressing General Eval Lower Body Dressing Ability Moderate Assistance Areas Needing Assistance Pants/Shorts Comments OT Dressing Comments Assist to help get underwear and pants over her feet. Pt educated to dress the RLE first and take out last. OT ADL-Toileting General Evaluation Toileting Ability Contact Guard Assistance Areas Needing Assistance Manage Clothing Comments OT Toileting Comments CGA for balance and assist to help pull up on the brief in the back. OT ADL-Bathing Comments OT Bathing Comments Pt refusing shower. Spoke of care for the dressing for showering needs. M5 OT- IP IADL's Start: 06/09/24 10:09 Freq: Status: Active Protocol: Document 06/09/24 10:10 [facility] (Rec: 06/09/24 10:21 [facility] [id number]) OT-Instrumental Activities of Daily Living Deficits IADL Deficits Identified Deficits Home Safety Awareness Awareness of Need for Assistance at Home Good Awareness Ability to Problem Solve Emergency Able to Problem Solve Situations Medication Management Medication Management Comments Pt to have assist as needed. Money Management Money Management Comments Pt to have assist as needed. Meal Preparation Meal Preparation Caregiver Provides Assist Senior Tax Accountant Senior Tax Accountant Caregiver Provides Assist M6 OT- IP Functional Cognition Start: 06/09/24 10:09 Freq: Status: Active Protocol: Document 06/09/24 10:10 [facility] (Rec: 06/09/24 10:21 [facility] [id number]) Cognitive Factors Limiting Selfcare Function Cognitive Ability Level of Alertness Alert Patient Orientation Name,Place,Situation Attention Span Ability Capable of Focused Attention, Capable of Sustained Attention Ability to Follow Commands Able to Follow One Step Commands with Increased Time, Able to Follow One Step Commands with Repetition Cognitive Comments Cognitive Assessment Comments Pt is a bit groggy and needing concrete simple cues to follow. Pt also needing repeated instructions and encouragement. OT- Vision and Hearing OT- Vision Assessment Visual Acuity Glasses All The Time Visual Attentiveness WFL Occular Pursuits WFL M7 OT- IP Mobility and Balance Start: 06/09/24 10:09 Freq: Status: Active Protocol: Document 06/09/24 10:10 [facility] (Rec: 06/09/24 10:21 [facility] [id number]) OT- Bed Mobility Assessment Supine to Sit Supine to Sit Assist Standby Assistance OT-Transfer Assessment Sit to and From Stand Sit to and from Stand Contact Guard Assistance, Minimal Assistance Transfers Transfer Ability Contact Guard Assistance Technique Transfer Destination Bed,Chair,Toilet Transfer Technique Stand Step Pivot Devices Transfer Assistive Devices Gait Belt,Front Wheeled Walker Comments Mobility Comments Pt heavily relies on grab bars and arm rests when coming to stand. ONce on the feet CGA with FWW. Able to educated pt on how to moe/doff the gait belt. When over exercises for her knee. OT- Balance Assessment Sitting Balance and Reactions Static Sitting Balance Ability Good Dynamic Sitting Balance Ability Good Standing Balance and Reactions Static Standing Balance Ability Fair Dynamic Standing Balance Ability Fair M8 OT- IP Objective Assessments Start: 06/09/24 10:09 Freq: Status: Active Protocol: Document 06/09/24 10:10 [facility] (Rec: 06/09/24 10:21 [facility] [id number]) OT Gross Range of Motion Upper Extremity Range of Motion ROM Impairments grossly WFL OT Strength Comments Strength Comments WFL for her needs. M9 OT- IP Assessment and Plan Start: 06/09/24 10:09 Freq: Status: Active Protocol: Document 06/09/24 10:10 [facility] (Rec: 06/09/24 10:21 [facility] [id number]) OT Summary Assessment and Plan Potential Rehabilitation Potential Excellent Analytic Complexity at Evaluation Low Summary OT Impairments Pain,Balance,Functional Mobility,Dressing,Toileting, Bathing,Toilet Transfers, Shower Transfers Progress Towards Goals Progressing Toward Goals Assessment Summary Pt low complexity and main barriers are pain, steps, and will need assist for ADL and mobility needs. Pt has supportive family to assist her. Pt to go to outpt PT. Pt has all ADL equipment at home from prior L ESTEFANY. Goals Dressing Goal Independent,Long Handled Shoe Horn,Framing Specialist,Sock Aid Toileting Goal Independent Bathing Goal Standby Assistance Toilet Transfer Goal Independent Shower Transfer Goal Standby Assistance Days to Meet Goals 5 Frequency of Treatment Other frequency 5x/week Treatment Plan OT Treatment Plan ADL Training,Functional Mobility,Patient/Family Education,Discharge Planning Discharge Recommendations OT Discharge Recommendations Home with 21/10 Assist Available,Outpatient PT Transportation Needs at Discharge Private Vehicle
[2024-06-09] MEDS: DULOXETINE 30 MG CAPSULE 60 MG PO (09:39)
[2024-06-09] MEDS: TRIAMTERENE/HCTZ 37.5/25 CAPSULE 1 CAP PO (09:39)
[2024-06-09] MEDS: LEVOTHYROXINE 137 MCG TABLET PO (09:39)
[2024-06-09] MEDS: ASPIRIN EC 81 MG TABLET PO (09:39)
[2024-06-09] MEDS: ACETAMINOPHEN 325 MG TABLET 650 MG PO (09:40)
[2024-06-09] MEDS: IBUPROFEN 400 MG TABLET PO (09:40)
--- NOTE | 2024-06-09 12:11 | PC.NURSE ---
Day shift: DIscharge instructions gone over with patient after patient worked with PT and OT. Patient stated understanding, all questions answered. PIV removed prior to discharge. All belongings with patient. NASH Amaro escorted patient via wheelchair to exit where patient's son plans to take patient home.
--- NOTE | 2024-06-09 14:09 | CM.DANOTE ---
DCP Assessment note pt is a 73yo F admitted POD1 right total knee. PCPP [facility] and self pay SWEATBAND DRUMMER reviewed EMR. per chart, cleared to dc home today. previous left hip surgery here at 05/2023. dc'd home with family/no CM needs. SWEATBAND DRUMMER met with pt in room. confirms son/DIL will be at home to assist her/transport her home. lives in [place]. DME: FWW/cane/elevated toilet/garb bars/sock aid. family to transport home. denies any CM needs. preference dc home with OP f/u. PT/OT=home with assistance. P: dc home today with family and OP f/u. no CM needs. will continue to follow as needed SKYLAR Tariq Discharge Planning/Care Management Advanced directive, confirm from FAMILY Start: 06/08/24 18:11 Freq: Q24H Status: Discharge Protocol: Document 06/08/24 19:00 CT (Rec: 06/09/24 00:21 CT [id number]) Advance Directive, confirm on record Time 19:30 Person contacted Pt Copy received No CM Discharge Assessment Start: 06/09/24 14:08 Freq: Status: Active Protocol: Document 06/09/24 14:08 SL (Rec: 06/09/24 14:09 SL [id number]) Discharge Planning Assessment Assigned Human Resources Department Supervisor SKYLAR Francis Advance Directives? Yes Advance Directives on File Yes History Provided By Patient,Medical Record Prior Living Arrangements House Household Members family,friend(s) Type of transporation used prior to Drives own vehicle admit Independent with ADL's Yes Is patient alert and oriented? Yes DME Already Rented / Owned FWW / Walker Patient/Family Preference OP PT Therapy Discharge Plan Home Transportation Arrangement family in POV Referrals Initiated None needed Whiteboard Updated in Patient Room with Yes name and ext. # of Human Resources Department Supervisor Review Status In Process Please Provide Date Initial DC 06/09/24 Assessment Was Performed Next Review Type Continued Stay Review Pre-Anesthesia Assessment Start: 06/01/24 12:22 Freq: Status: Discharge Protocol: Document 06/01/24 12:22 [facility] (Rec: 06/01/24 13:26 CAB [id number]) Pre-Anesthesia Assessment PAC Comment Phone assess 06/01/24. Patient does not want a spinal, had difficulty with LT ESTEFANY 06/24/23 Patient Information Reviewed Via Phone Assessment Assessment Completed With Patient Diagnostic Results BMP/CMP,CBC,EKG Comment Labs/EKG @ [facility] Primary Care Provider Yanni Simental Seen Specialist in Last 12 Months Yes Specialist Seen Orthopedist Primary Language Algerian Preferred Language Algerian Bladder Blower Required No Height 172.72 cm Weight 117.934 kg Body Mass Index (BMI) 39.5 Hearing Ability Normal Visual Assist Glasses Dentition Type Teeth, Natural Present Barriers to Learning None Hx Anesthesia Reactions Yes: Extreme difficulty with spinal for LT ESTEFANY, It was horrible, I passed out Hx Family Anesthesia Reaction No Hx Malignant Hyperthermia No Hx Blood Transfusions No Anesthesia Review Requested No Wood Fence Installer No alcohol intake current alcohol intake frequency holidays/special occasions only Smoking Status Never smoker Substance Use Type [#R] does not use Pain Present Pain Reported Musculoskeletal Symptoms Abnormal Gait,Back Pain, Difficulty Walking,Joint Pain History of Falling (Recent or History of Yes ) Patient is completely paralyzed or No completely immobile Prosthesis or Orthotic Device Cane Mental Status Oriented to own ability Is patient on oxygen? No Does patient have BURNETT/SOB No Hx Sleep Apnea Yes CPAP/BIPAP use prescribed and used routinely Will Bring CPAP/BIPAP DOS Yes Currently Taking a Beta Kehinde Yes: Metoprolol Can You Climb a Flight of Stairs Without No SOB Hx Chest Pain Yes Hx SOB Yes Hx Syncope or Dizziness No Anti-Coagulant Therapy Yes: ASA 81mg - pt will hold 1 day prior surgeon office Has a Hydraulics Engineer No Cardiac Testing No Hx Pacemaker/ICD No Pacemaker Rep Required? No Cardiac Clearance Received No Diet Type At Home Regular Dysphagia No Gastrointestinal Symptoms Constipation Chronic UTI Yes Urinary Catheter Present No Hx Urinary Self Catheterization No Diabetes No Patient No Lactating No Hx Drug Resistant Organism No Presence of External or Internal Medical Yes: Cardiac stent, CPAP, Devices bilat eye IOLs, left hip Month and year received flu vaccine 2022 Received a COVID vaccine? Yes Comment No covid symptoms 8 weeks Marital Status single Lives With family,friend(s) Current Living Arrangements House Number of Floors (Floors) Two Floors Support System Friend(s) Does the Patient Have Assistance After Yes: Friend will stay w/pt to Surgery assist with care at DC Patient Discharge Plan Description Return Home Comment Pt not advised on length of stay per surgeon, pt wants to stay overnight Feels Safe in Current Environment Yes Been Physically Hurt or Threatened By a No Person in Current Environment Do you have thoughts of harming yourself None or others? Are you currently considering suicide? No Do you have a plan to hurt yourself or No Plan others? Do You Have Any Spiritual Beliefs That No May Affect Your HC Choices? Do You Have Any Cultural Practices That No May Affect Your HC Choices? Comment Islam Who Can We Speak to About Patient's Care Family, friends Identifying Code for Release of Patient Declines to issue Information Health Care Proxy/Next of Kin Meño (son) Adrián (son) Health Care Proxy Phone Number Meño: [phone] Adrián: Emergency Contact Name Barbara (friend) Emergency Contact Advance Directives? Yes Advance Directives on File Yes Power of Motor Lodge Clerk Yes Power of Motor Lodge Clerk Name Meño (son) Power of Motor Lodge Clerk PAC Instructions Bring CPAP/BIPAP,Do not shave/ clip surgical site,Durable medical equipment,Medications to take/avoid,Nasal antibiotic ,No ETOH/petroleum product on skin DOS,NPO,Post-op transportation,Pre-surgical wash,Sturdy shoes/comfortable clothes,Do not bring valuables and remove jewelry
== END 2024-06-09 12:05 | disposition home or self-care (01) ==
LOC: OR 11:22 → AC 11:23
PROVIDERS: PCP Physician Assistant Medical; Referring Provider Orthopaedic Surgery; Visit Provider Orthopaedic Surgery
PROC: 0SRC0JZ Replacement of Right Knee Joint with Synthetic Substitute, Open Approach (ICD-10-PCS; CPT 27447; principal; 2024-06-08 13:45)
DX: M17.11 Unilateral primary osteoarthritis, right knee (principal); G89.18 Other acute postprocedural pain; M25.761 Osteophyte, right knee
CPT/HCPCS: 27447; 36415; 64450; 73560; 85014; 85018; 97161; 97165; 97530; 97535; C1776; C1713; J0666; J0690; J1100; J2250; J2405; J2704; J3010

== ENCOUNTER → 2024-06-21 13:45 | Outpatient (CLI) | payer MEDICARE, SELFPAY ==
[2024-06-08 11:30] VITALS: BMI 38.7
--- NOTE | 2024-06-21 13:46 | DI.US.S_ITS ---
PROCEDURE: US PERIPH VENOUS LOW EXTREM RT INDICATIONS: RIGHT ARTIFICIAL KNEE JOINT / R/O DVT TECHNIQUE: Real-time imaging, as well as color and pulse Doppler interrogation, were performed of the lower extremity deep veins from the inguinal ligament to the popliteal fossa, with documentation of the visualized calf veins. COMPARISON: None. FINDINGS: The common femoral, femoral, popliteal, and the visualized calf veins are normally compressible, and free of intraluminal thrombus. Color and pulse Doppler demonstrate normal phasic intraluminal flow. There is normal augmentation response to distal compression maneuver. There is superficial thrombosis of a branch of the small saphenous vein. IMPRESSION: No findings of lower extremity deep venous thrombosis. Superficial thrombosis of a small saphenous vp project vein. Dictated by: Jay Harper M.D. on 06/21/2024 at 14:40 Approved by: Jay Harper M.D. on 06/21/2024 at 14:40
== END ==
LOC: US 13:46
PROVIDERS: PCP Physician Assistant Medical; Referring Provider Physician Assistant; Visit Provider Physician Assistant
DX: I82.811 Embolism and thrombosis of superficial veins of right lower extremity (principal); Z96.651 Presence of right artificial knee joint
CPT/HCPCS: 93971